=== PATIENT | male | born 1945 | race Hispanic/Latino ===

== ENCOUNTER 2018-09-01 17:09 | Inpatient (IN) | payer MEDICARE ==
[2018-09-01 17:34] LABS: #Eosinphils 0.3 thou/uL (0.0-0.7); #Lymphocytes 2.3 thou/uL (1.20-3.40); #Monocytes 0.9 thou/uL (0.11-0.59); #Neutrophils 6.3 thou/uL (1.40-6.50); %Basophils 0.3 % (0.0-1.0); %Lymphocytes 23.3 % (21.0-51.0); %Monocytes 8.9 % (0.0-10.0); %Neutrophils 64.5 % (42.0-75.0); Hemoglobin 16.1 g/dL (14.0-18.0); Mean Corpuscular HGB CONC 32.6 g/dL (32.0-36.0); Mean Corpuscular Hemoglobin 31.1 pg (27.0-31.0); Mean Corpuscular Volume 95.5 fL (78.0-98.0); Mean Platelet Volume 9.1 fL (7.4-10.4); Platelet Count 165 thou/uL (130-400); RBC Distribution Width 12.3 % (11.5-14.5); Red Blood Cell (RBC) Count 5.17 mill/uL (4.70-6.10); White Blood Cell (WBC) Count 9.7 thou/uL (4.8-10.8)
[2018-09-01] MEDS ORDERED: Amiodarone 150 MG/3 ML VIAL ONE (17:36)
[2018-09-01 17:53] LABS: ALT (SGPT) 61 U/L (8-55); AST (SGOT) 62 U/L (5-34); Albumin 4.1 g/dL (3.4-4.8); Alkaline Phosphatase 102 U/L (40-150); Anion Gap 12 mmol/L (10-20); BUN (Urea Nitrogen) 26 mg/dL (8.4-25.7); Bilirubin, Total 0.5 mg/dL (0.2-1.2); Calc. Creatinine Clearance 0 mL/min (70-130); Calcium 9.3 mg/dL (7.8-10.44); Carbon Dioxide 26 mmol/L (23-31); Chloride 104 mmol/L (98-107); Estimated GFR-MDRD 62; Globulin 3.7 g/dL (2.4-3.5); Glucose 103 mg/dL (83-110); Potassium 4.7 mmol/L (3.5-5.1); Protein, Total 7.8 g/dL (5.8-8.1); Sodium 137 mmol/L (136-145)
--- NOTE | 2018-09-01 17:59 | RAD ---
Frontal radiograph chest: 09/01/2018 COMPARISON: 11/14/2016 HISTORY: Tachycardia FINDINGS: Stable midline sternotomy wires and prominence of the cardiac silhouette. No pneumothorax o r lobar consolidation. Hazy increased density is noted in the left base which may be on the basis of soft tissue prominence, volume loss, small volume left pleural fluid, or mild left basilar airspac e disease. Pulmonary vascular congestion noted. IMPRESSION: Prominent cardiac silhouette with pulmonary vascular congestion and nonspecific mild incr eased density of the left lung base.
[2018-09-01 18:16] LABS: CKMB 5.1 ng/mL (0-6.6)
[2018-09-01 21:43] LABS: Troponin I 0.569 ng/mL (< 0.028)
[2018-09-01] MEDS ORDERED: Acetaminophen 325 MG TAB ONE (22:04)
[2018-09-02 00:36] LABS: Troponin I 1.077 ng/mL (< 0.028)
[2018-09-02] MEDS ORDERED: Acetaminophen 325 MG TAB PO PRN ×2 (01:59→20:37)
[2018-09-02 02:13] VITALS: BMI 27.9
[2018-09-02] MEDS ORDERED: Prevnar 13-Val Conj/PF 0.5 ML SYRINGE IM ONE (02:30)
[2018-09-02 05:32] LABS: Troponin I 1.493 ng/mL (< 0.028)
[2018-09-02] MEDS ORDERED: Clopidogrel Bisulfate 75 MG TAB PO SCH (06:00)
--- NOTE | 2018-09-02 12:54 | HP ---
CHIEF COMPLAINT: Heart racing. HISTORY OF PRESENT ILLNESS: This is a 73-year-old gentleman with a history of hypertension, coronary artery disease, status post coronary artery bypass graft, hypertension, and hyperlipidemia, who presented to the emergency department with onset of heart racing. The patient denies chest pain or shortness of breath, but does state that he felt like his heart was racing too fast. He did have some dyspnea on exertion but at rest would feel better. He presented to the emergency department, had a very high heart rate up into the 160s and 170s due to the rate. He was unable to determine between ventricular tachycardia and AFib with rapid ventricular response. In the emergency department, he underwent cardioversion with sedation. It did improve his heart rate down initially into the 80s, but then down into the 40s and 50s. He remains in AFib. At this point, as discussed with Cardiology as far as admission, he is feeling much better at this time. PAST MEDICAL HISTORY: Hypertension, hyperlipidemia, and coronary artery disease. PAST SURGICAL HISTORY: Five-vessel coronary artery bypass graft in 2017. SOCIAL HISTORY: He is retired. No smoking. No alcohol use. He lives with his . ALLERGIES: NO KNOWN DRUG ALLERGIES. MEDICATIONS: Include; 1. Lisinopril 2.5 mg daily. 2. Carvedilol 3.125 mg b.i.d. 3. Aspirin 325 mg daily. He is followed by Cardiology at [facility]. REVIEW OF SYSTEMS: As per the history of present illness. GENERAL: Denies any recent fevers, chills, or recent illness. HEENT: Denies headache, vision or hearing changes. CARDIAC: As per the history of present illness. PULMONARY: Denies cough or hemoptysis. GASTROINTESTINAL: Denies nausea, vomiting, or abdominal pain. GENITOURINARY: Denies dysuria or hematuria. Some history of BPH in the past. NEUROLOGIC: No weakness, seizure, or syncope. PHYSICAL EXAMINATION: VITAL SIGNS: Temperature 97.2, pulse 40 to 45, respirations 16, blood pressure 98/54, and pulse ox is 94% on room air. GENERAL: He is awake and alert. No acute distress. 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 HEENT: Mucosa is moist. NECK: Supple. HEART: Bradycardic and irregular. LUNGS: Clear. ABDOMEN: Soft. EXTREMITIES: With no edema. LABORATORY DATA: Reviewed. White blood cell count 9.7, hemoglobin and hematocrit of 16.1 and 49.1, and platelets of 165. Sodium 137, potassium 4.7, chloride 104 , CO2 of 26, BUN and creatinine 26 and 1.15, and serum glucose of 103. AST and ALT are elevated. Troponin I is rising, first one is 0.288, next 0.569, next 1.07, next 1.49. IMAGING DATA: EKGs reviewed. Echocardiogram is pending. ASSESSMENT AND PLAN: 1. This is a 73-year-old gentleman with known coronary artery disease, hypertension, hyperlipidemia, now with onset of atrial fibrillation with rapid ventricular response versus ventricular tachycardia, which is resolved with cardioversion. He is now bradycardic with atrial fibrillation. 2. Coronary artery disease with rising troponins likely due to demand ischemia and status post cardioversion but may be consistent with non-ST elevation myocardial infarction. Cardiology is consulted. For further evaluation, possible repeat cardiac catheterization. May need implanted defibrillator. 3. Hypotension. We will hold antihypertensive at this time. 4. Bradycardia, atrial fibrillation in junctional rhythm. May need pacemaker. Job ID: [id number] [facility]
--- NOTE | 2018-09-02 19:54 | CON ---
DATE OF CONSULTATION: 09/02/2018 REASON FOR CONSULTATION: Tachycardia. HISTORY OF PRESENT ILLNESS: Mr. Richardson is a very pleasant, very well known to myself, 73-year-old gentleman, mostly Kazakh speaking, who comes to the hospital for palpitations. He came in and was found to have a wide-complex rhythm that was attempted to be cardioverted several times, slowed down with different medications. He has a history of an ischemic cardiomyopathy. He had a bypass surgery in 2017. A few months later, he followed up in the office and repeat echocardiogram showed his EF has remained reduced at 30% to 35%. I offered him an AICD and he stated that he did not want it at that time and he wanted to think about it, that was the last time I ever saw him. He never came back for his followups. He missed a few and then never rescheduled. He comes in today with tachycardia. He has an underlying left bundle-branch block, so he was in what appears to be SVT or atrial tachycardia with a left bundle, which made it look like VT. He had his rate slowed down briefly and he went into 2:1 block, which could be either atrial tach versus aflutter with 2:1 block, likely atrial tach and then he went back up to the 150s. Eventually, he was placed on amiodarone and converted back to sinus rhythm and slowly started to have bradycardia and eventually had a 7 to 8 second pause, so amiodarone had to be stopped. Currently, he is in sinus rhythm. He denies any chest pain, tightness, pressure. During his admission, troponins were drawn, which were mildly elevated. PAST MEDICAL HISTORY: 1. Hypertension. 2. Hyperlipidemia. 3. Coronary artery disease, status post CABG x5 in 2017. 4. Ischemic cardiomyopathy with last EF in 2017 at 30% to 35%. SURGICAL HISTORY: CABG x5 in 2017. SOCIAL HISTORY: No alcohol, tobacco, or drugs. OUTPATIENT MEDICATIONS: Include; 1. Lisinopril 2.5 mg a day. 2. Carvedilol 3.125 mg b.i.d. 3. Aspirin 325 a day. ALLERGIES: NO KNOWN DRUG ALLERGIES. REVIEW OF SYSTEMS: A 12-point review of systems was done and was found to be negative unless stated in the history of present illness. PHYSICAL EXAMINATION: VITAL SIGNS: Temperature 97.4, pulse 47, respiratory rate 17, saturating 93% on 2 L nasal cannula, and blood pressure 176/82. GENERAL: Awake, alert, and oriented x3. No distress. HEENT: Normocephalic and atraumatic. NECK: Supple. LUNGS: Clear. CARDIOVASCULAR: S1 and S2. No S3 or S4. No murmurs. ABDOMEN: Soft. Positive bowel sounds. EXTREMITIES: Trace edema. SKIN: Warm and dry. LABORATORY DATA: Laboratory work was reviewed. CBC, unremarkable. Chemistry, unremarkable. Troponin is 0.2, then 0.5, then 1.0, then 1.4. AST and ALT are mildly elevated at 62 and 61. Albumin of 4.1. Creatinine 1.15. Echocardiogram was reviewed. He has an EF of 30% to 35% with grade 2 diastolic dysfunction, apical hypokinesis, and severely dilated left atrium. Right ventricular systolic pressure elevated at 45 mmHg. Aortic valve sclerosis. There is obkamroj-dh-vthtfl mitral regurgitation. ASSESSMENT: 1. Tachycardia-bradycardia syndrome. 2. Atrial tachycardia. 3. Underlying left bundle-branch block. 4. Ischemic cardiomyopathy with an ejection fraction of 30% to 35%. 5. Non-ST elevation myocardial infarction, demand ischemia most likely as he is asymptomatic and this is most likely from his atrial tach. PLAN: 1. Mr. Richardson is a candidate for pacemaker and in the setting of a chronic-reduced EF. He is a candidate for a defibrillator. Because of his left bundle-branch block, he would also be a candidate for a biventricular device. We will recommend he get a biventricular AICD at this time to protect from the tachy-nataliia syndrome and from his LV dysfunction and ischemic cardiomyopathy and try to synchronize his heart given his chronic left bundle-branch block. I spoke with Mr. Richardson about this at length and he stated that if this is what we need to do, he is willing to continue to proceed and get his biventricular AICD in place. 2. I think his troponin elevation is a demand ischemia from his arrhythmia. No plan on risk stratification at this time as he is asymptomatic, otherwise. 3. Dr. Bolanos is aware and he is planning on doing a biventricular AICD tomorrow. Thank you for letting us to participate in the care of your patient. We will continue to follow. Job ID: [id number]
[2018-09-02] MEDS ORDERED: Acetaminophen 325 MG TAB ONE (20:37)
[2018-09-03] MEDS ORDERED: CEFAZOLIN 2 GM in Premix Bag 1 BAG IVPB SCH (01:00)
[2018-09-03 02:59] LABS: Critical Call Chem Troponin I RESULT DECREASING; Troponin I 0.896 ng/mL (< 0.028)
--- NOTE | 2018-09-03 08:57 | PRG ---
DATE OF SERVICE: 09/03/2018 SUBJECTIVE: The patient is feeling fine now. He denies chest pain or shortness of breath. He did have some headache yesterday. No nausea or vomiting. He is quite anxious about this procedure today, but agrees with proceeding with it and understands risks and benefits of having the biventricular defibrillator pacemaker placed. He has not been ambulating much, but states his appetite is good. OBJECTIVE: VITAL SIGNS: Temperature 97.7, pulse 40 to 47, respirations 16 to 20, blood pressure 139/69, pulse ox 94% on room air. GENERAL: He is awake and alert, no acute distress. Speech is clear. NECK: Supple. HEART: Bradycardic. LUNGS: Clear. ABDOMEN: Soft. EXTREMITIES: With no edema. LABORATORY DATA: Last troponin was 0.896. ASSESSMENT AND PLAN: This is a 73-year-old gentleman with a history of coronary artery disease status post coronary artery bypass graft, admitted with atrial tachycardia and status post cardioversion in the emergency department and now with underlying bradycardia. 1. Tachy-nataliia syndrome. Appreciate Dr. Kirk and Dr. Bolanos. He is to proceed with a biventricular AICD placement today and is in agreement. 2. Ischemic cardiomyopathy with reduced ejection fraction. Further plan after AICD placement. 3. Ggd-ZE-[id number] myocardial infarction, likely secondary to demand ischemia with his severe tachycardia and status post cardioversion. 4. Hypertension. We will continue to monitor. Job ID: [id number]
--- NOTE | 2018-09-03 10:00 | CON ---
DATE OF CONSULTATION: 09/02/2018 HISTORY OF PRESENT ILLNESS: I am seeing Mr. 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 Chronic systolic congestive heart failure with ischemic cardiomyopathy. a. Moderate to severely reduced LVEF at 30% to 35%, moderate right atrial and severe left atrial enlargement, gztooirs-ie-lhsbkz mitral regurgitation, moderate tricuspid regurgitation, moderate pulmonary hypertension, has an echo on 09/01/2018. b. Prior reduced LVEF at 30% to 35% on echo in 2017. c. Multivessel disease from coronary artery bypass surgery in 2017. 2. Atrial tachycardia with one-to-one conduction at 160 beats per minute, responding to IV amiodarone. a. Tachy-nataliia syndrome with marked bradycardia after IV amiodarone loading with junctional rhythm and sinus exit blocks. 3. Left bundle branch block. 4. History of hypertension and hyperlipidemia. ALLERGIES: NONE NOTED. MEDICATIONS: At home include: 1. Lisinopril. 2. Carvedilol 3.125 mg twice a day. 3. Aspirin. SUBJECTIVE: Mr. Richardson presented with rapid heartbeats, palpitations. He was mildly dizzy, did not pass out. Denied chest pains. He was noted in the ER to be in a regular wide-complex tachycardia. Serial EKGs do reveal intermittently slower rhythms, but still continued atrial tachycardia with 1-1 versus 2-1 conduction. He received defibrillation, but that did not terminate the arrhythmia. Eventually, IV amiodarone was given, which slowed him down. He had excessive bradycardia in the 30s and 40s, junctional rhythm is also seen. He denies chest pains. No fever, chills, or cough. No stroke-like symptoms. No neurological deficits. He had elevated cardiac enzymes due to acute coronary syndrome, but due to demand ischemia with acute tachyarrhythmia. Currently denies PND, orthopnea, or lower extremity edema. No dizziness or loss of consciousness. No chest pains. He is NYHA class I to II functional status. REVIEW OF SYSTEMS: Rest of 12-point system otherwise unremarkable. PAST MEDICAL HISTORY: As above. SOCIAL HISTORY: The patient denies smoking EtOH or drug abuse. He lives with his . His son is present with him as a office electrician. OBJECTIVE DATA: VITAL SIGNS: Blood pressure is 162/84, heart rate 47, respirations 17, temperature 97.4 degrees Fahrenheit. GENERAL: Alert and oriented man, in no apparent distress. NECK: Supple. Jugular veins not distended. CHEST: Coarse without crackles. HEART: Sounds are regular to rate and rhythm. No murmur or gallop. ABDOMEN: Benign. Bowel sounds positive. EXTREMITIES: Lower extremity without edema, clubbing or cyanosis. Pulses are adequate. NEUROLOGIC: The patient is nonfocal. MUSCULOSKELETAL: No joint swelling or deformity. SKIN: Without rash. DATABASE: EKGs initially reveal a wide-complex tachycardia, left bundle branch block pattern QRS appr 150ms. Subsequent EKG reveals similar morphology. QRS with clear atrial tachycardia 2-1 AV conduction is noted. He has variable AV conduction also seen on other EKGs, seems there is EKG strips with multiple cardioversion attempts with recurrence of atrial tachycardia. Most recent telemetry strips do reveal marked bradycardia, junctional rhythm, occasional sinus exit block is seen. LABORATORY DATA: White count is 9.7, hemoglobin is 16.1, platelet count is 165. Sodium 137, potassium 4.7, BUN is 26, creatinine 1.15. Troponin I 0.288, initially increasing to 0.569, 1.077, and 1.493. AST 62, ALT 61. 2D echo as noted above. Chest x-ray shows apparent cardiac silhouette with pulmonary vascular congestion. ASSESSMENT AND PLAN: Mr. Richardson is a 73-year-old man with history of ischemic cardiomyopathy, severely reduced LVEF around the time of his bypass surgery. Now presents with atrial tachycardia with response to amiodarone, but now has excessive bradycardia, evidently has tachy-nataliia syndrome, hence chronic indication for ICD therapy. Although, he has elevated troponin levels, as I discussed with Dr. Kirk, it is likely due to demand ischemia, not a true acute coronary syndrome. For now, no new ischemic workup is planned. We discussed the pros and cons about consideration for ICD implant. With a Bi-V ICD, we were to improve his AV synchrony and in view of his left bundle branch block, this could be beneficial. Also, he would be able to monitor for ventricular arrhythmias, but also atrial arrhythmias and avoid excessive bradycardia with necessary medical therapy associated with that. Risk of ICD implantation, infection, bleeding, pneumothorax, and tamponade were discussed. He understands and is willing to proceed. We also discussed the potential for an ablation on the other hand with recent IV amiodarone, the suppression of the atrial arrhythmia may or may not be successfully induced. At this point, I would continue the medical management switching from amiodarone to beta-sonu and consider EP study at a later date after amiodarone washout. Also atrial tachyarrhythmia might be later well suppressed with atrial ATP therapies as well. Coronary artery disease with congest heart failure as per Dr. Kirk. All of these were discussed with the patient and they understand and willing to proceed. We will schedule him for tomorrow. Thank you again for allowing me to participate in the care of this patient. Job ID: [id number] MTDD
[2018-09-03] MEDS ORDERED: Iopamidol 370 76% 50 ML VIAL FS ONE (10:51)
[2018-09-03] MEDS ORDERED: Midazolam HCl 2 mg/2 ml Vial ONE (14:10)
[2018-09-03] MEDS ORDERED: Fentanyl 100 MCG/2 ML VIAL ONE (14:10)
[2018-09-03] MEDS ORDERED: Propofol 500 MG/50 ML VIAL ONE (14:11)
[2018-09-03] MEDS ORDERED: Ketamine 50 MG/ML (10ML VIAL) ONE (14:11)
[2018-09-03] MEDS ORDERED: PROPOFOL 200 MG/20 ML VIAL ONE (15:13)
[2018-09-03] MEDS ORDERED: ePHEDrine 50 MG/ML VIAL ONE (15:13)
[2018-09-03] MEDS ORDERED: Glycopyrrolate 0.2 MG/ML 5 ML SYRINGE ONE (15:13)
[2018-09-03] MEDS ORDERED: Promethazine HCl 25 MG/ML VIAL IM PRN (15:47)
[2018-09-03] MEDS ORDERED: Ondansetron HCl/PF 4 MG/2 ML Vial IVP PRN (15:47)
[2018-09-03] MEDS ORDERED: Promethazine HCl 25 MG/ML VIAL SLOW IVP PRN (15:47)
--- NOTE | 2018-09-03 18:06 | PDOC.CTH ---
Cardiology Progress Note - Subjective He had his AICD placed earlier today. He is doing better now. - Objective Vital Signs Temp Pulse Resp BP Pulse Ox 09/03/18 16:26 98.1 F 60 18 166/93 H 97 09/03/18 12:17 98.8 F 44 L 17 162/77 H 96 09/03/18 07:17 97.6 F 44 L 16 158/78 H 98 Weight 170 lb 12.8 oz 09/02/18 09/03/18 09/04/18 06:59 06:59 06:59 Intake Total 270 960 Output Total 100 700 Balance 170 260 - Physical Examination General/Neuro: alert & oriented x3, NAD Neck: no JVD present Lungs: CTA, unlabored respirations Heart: RRR Abdomen: NT/ND Extremities: other: (no edema) - Telemetry Telemetry Rhythm: AV paced. - Labs Result Diagrams: 09/01/18 17:18 09/01/18 17:18 Troponin/CKMB CK-MB (CK-2) 5.1 ng/mL (0-6.6) 09/01/18 17:18 Troponin I 0.896 ng/mL (< 0.028) H* 09/03/18 02:25 - Assessment/Plan 1. SVT 2. Tachy nataliia syndrome 3. Ischemic CM EF at 30-35% 4. S/P BiV AICD 5. LBBB underlying. PLAN: - Will re start BB and ACEI. Will increase dose of coreg. - ASA and statin for life. - Discharge home tomorrow if he remains stable. - Plan on switching to Entresto as an outpatient.
[2018-09-03] MEDS: HYDROcodone/Acetaminophen 7.5/325 mg Tablet PO PRN (18:25)
[2018-09-03] MEDS: Atorvastatin Calcium 20 MG TAB PO SCH (20:17)
[2018-09-03] MEDS: ceFAZolin Sodium 1 GM/Dextrose 50 ML BAG IVPB SCH (21:41)
[2018-09-04] MEDS: HYDROcodone/Acetaminophen 7.5/325 mg Tablet PO PRN ×4 (00:12→22:12)
[2018-09-04] MEDS: ceFAZolin Sodium 1 GM/Dextrose 50 ML BAG IVPB SCH (06:48)
[2018-09-04] MEDS ORDERED: Cephalexin 250 MG CAP PO SCH (08:00)
[2018-09-04] MEDS ORDERED: Carvedilol 6.25 MG TAB PO SCH ×2 (08:00)
--- NOTE | 2018-09-04 08:06 | RAD ---
CHEST 1 VIEW: HISTORY: Defibrillator placement. COMPARISON: 09/01/2018. FINDINGS: Cardiac silhouette is magnified and enlarged. Pulmonary vasculature is slightly less engorged than o n the prior study. Mild patchy bibasilar infiltrates are less pronounced. Mediastinum is midline wi th postoperative changes and aortic calcification. A multilead left subclavian cardiac electronic de vice is now in place with leads overlying the coronary sinus, right atrium, and right ventricle. No evidence of pneumothorax. cafeteria monitor leads overlie the chest. IMPRESSION: 1. Left subclavian cardiac electronic device is in good radiographic position. No evidence of compl ication. 2. Improved aeration of lung base. Interval decrease in radiographic degree of pulmonary vascular c ongestion. POS: [facility]
[2018-09-04] MEDS: Cephalexin 250 MG CAP PO SCH ×3 (08:53→20:48)
[2018-09-04] MEDS: Aspirin 81 mg Enteric Coated Tablet PO SCH (08:53)
[2018-09-04] MEDS ORDERED: Lisinopril 10 MG TAB PO SCH (09:00)
--- NOTE | 2018-09-04 10:14 | PDOC.CTH ---
Cardiology Progress Note - Subjective EP PROGRESS NOTE: 09/04/18 Seen as follow up after BiV ICD implant on 09/03/18 for CHF and LBBB. Feels well. No cardiac concerns or complaints today. Possible DC later today. Some pain and swelling at his implant site. - Objective Vital Signs Temp Pulse Resp BP BP Pulse Ox 09/04/18 08:07 97.8 F 63 20 175/84 H 96 09/04/18 04:00 97.8 F 63 20 167/85 H 95 09/04/18 00:05 98.5 F 63 20 149/80 H 93 L Weight 168 lb 12.8 oz 09/03/18 09/04/18 09/05/18 06:59 06:59 06:59 Intake Total 960 840 Output Total 700 2000 Balance 260 -1160 - Physical Examination General/Neuro: alert & oriented x3, NAD Neck: carotid US brisk, no JVD present Lungs: CTA, unlabored respirations Heart: PMI normal, RRR Abdomen: NT/ND, soft - Telemetry Telemetry Rhythm: SR - Labs Result Diagrams: 09/01/18 17:18 09/01/18 17:18 Troponin/CKMB CK-MB (CK-2) 5.1 ng/mL (0-6.6) 09/01/18 17:18 Troponin I 0.896 ng/mL (< 0.028) H* 09/03/18 02:25 - Assessment/Plan 1. A/C Systolic heart failure - per cardiology - was on carvedilol 12.5mg PO BID at home by home med rec. Was decreased during hospitalization d/t bradycardia before ICD. Now back on 12.5 BID. Further optimize to 25mg BID upon DC. 2. LBBB 3. BiV ICD - implanted 09/03 -continue post implant keflex x 7 days as prescribed. 4. Wide complex tachycardia - No VT inducible - Easily inducible for atrial tachycardia. Treat with BB for now. If symptomatic with recurrences can consider RFA as OP. OK for DC by EP. 10-14 day appt for wound/device check. 3 month fup will also be arranged.
[2018-09-04] MEDS: Carvedilol 25 MG TAB PO SCH (17:59)
--- NOTE | 2018-09-04 18:11 | PDOC.CTH ---
Cardiology Progress Note - Subjective he is doing well. He developed a small hematoma around his ICD site but it is better controlled. - Objective Vital Signs Temp Pulse Pulse Pulse Resp BP BP 09/04/18 13:17 98.3 F 66 18 09/04/18 10:56 66 81 147/80 H 162/89 H 09/04/18 08:10 09/04/18 08:07 97.8 F 63 20 BP BP Pulse Ox 09/04/18 13:17 131/78 96 09/04/18 10:56 09/04/18 08:10 95 09/04/18 08:07 175/84 H 96 Weight 168 lb 12.8 oz 09/03/18 09/04/18 09/05/18 06:59 06:59 06:59 Intake Total 960 840 Output Total 700 2000 Balance 260 -1160 - Physical Examination General/Neuro: alert & oriented x3, NAD Neck: no JVD present Lungs: CTA, unlabored respirations Heart: RRR Abdomen: NT/ND Extremities: + edema B (no edema) - Telemetry Telemetry Rhythm: AV paced. - Labs Result Diagrams: 09/01/18 17:18 09/01/18 17:18 Troponin/CKMB CK-MB (CK-2) 5.1 ng/mL (0-6.6) 09/01/18 17:18 Troponin I 0.896 ng/mL (< 0.028) H* 09/03/18 02:25 - Assessment/Plan 1. SVT 2. Tachy nataliia syndrome 3. Ischemic CM EF at 30-35% 4. S/P BiV AICD 5. LBBB underlying. PLAN: - Increase BBV and ACEI today. - ASA and statin for life. - Discharge home anytime from cardiac perspective. - Will sign off, please call with any questions.
[2018-09-04] MEDS: Atorvastatin Calcium 20 MG TAB PO SCH (20:48)
--- NOTE | 2018-09-05 01:05 | DIS ---
DATE OF ADMISSION: 09/01/2018 DATE OF DISCHARGE: 09/04/2018 ADMISSION DIAGNOSES: 1. Tachyarrhythmia suspicious for ventricular tachycardia. 2. Coronary artery disease. 3. Cardiomyopathy with decreased left ventricular ejection fraction. 4. Hypertension. 5. Hyperlipidemia. DISCHARGE DIAGNOSES: 1. Tachy-nataliia syndrome. 2. Atrial fibrillation. 3. Symptomatic bradycardia. CONSULTATIONS: Dr. iKrk for Cardiology. Dr. Bolanos for Electrophysiology. PROCEDURES: 1. Telemetry monitoring, rule out [place] protocol. 2. Cardioversion in the emergency department. 3. Echocardiogram. 4. Cardiac catheterization. 5. AICD placement with postoperative chest wall hematoma. HOSPITAL COURSE: This is a 73-year-old gentleman with a history of coronary artery disease status post coronary artery bypass graft, hypertension, hyperlipidemia, and noncompliance who presented to the emergency department with feeling like his heart was going too fast. In the emergency department, he had a heart rate up to 160s and 170s. There was suspicion for ventricular tachycardia due to his symptoms. He underwent cardioversion and converted to atrial fibrillation with symptomatic bradycardia with heart rates down to the 40s. Due to his symptoms, Dr. Bolanos was consulted and agreed with placement for a defibrillator and pacemaker. He did rule in for myocardial infarction with positive troponins, likely due to demand ischemia with this tachycardia as well as cardioversion. His antihypertensives were held due to his low blood pressure. The patient had no further symptoms. He tolerated the AICD placement and was feeling much better. On the day of discharge, he did develop hematoma in his chest wall site, likely due to trying to sleep on his left side last night. Pressure was to be applied and if okay with Dr. Bolanos, he will be discharged home with close followup. DISCHARGE PHYSICAL EXAMINATION: VITAL SIGNS: Temperature 97.8, pulse is 63, respirations 20, blood pressure 167/85, pulse ox 95% on room air. GENERAL: He is awake and alert, in no acute distress. He seems more energetic. Denies chest pain or shortness of breath. Mucosa is moist. CHEST WALL: Incision is clean, dry, and intact. He does have swelling on the left anterior chest wall with some tenderness. HEART: Regular rate and rhythm. LUNGS: Clear. No wheeze, rales, or rhonchi. ABDOMEN: Soft. LABORATORY DATA: Reviewed. Chest x-ray this morning is pending radiology reading, but appears clear. No pneumothorax. Sternal wires present as well as device in the left anterior chest wall. DISCHARGE MEDICATIONS: Include: 1. Tylenol p.r.n. 2. Aspirin 81 mg daily. 3. Lipitor 20 mg daily. 4. Carvedilol increased to 12.5 mg b.i.d. 5. Keflex 500 mg q.i.d. for 7 more days. 6. Lisinopril 10 mg daily. FOLLOWUP INSTRUCTIONS: The patient to follow up in my office in 1 week. Follow up with Dr. Kirk for Cardiology and Dr. Bolanos for Electrophysiology. Job ID: [id number]
[2018-09-05] MEDS: Cephalexin 250 MG CAP PO SCH ×2 (03:09→08:25)
[2018-09-05] MEDS: Carvedilol 25 MG TAB PO SCH (08:25)
[2018-09-05] MEDS: Aspirin 81 mg Enteric Coated Tablet PO SCH (08:26)
[2018-09-05] MEDS ORDERED: Lisinopril 20 MG TAB PO SCH ×2 (09:00→12:04)
[2018-09-05] MEDS: HYDROcodone/Acetaminophen 7.5/325 mg Tablet PO PRN (09:37)
[2018-09-05] MEDS ORDERED: Lisinopril 10 MG TAB PO SCH (12:30)
[2018-09-05 16:10] VITALS: BP 112/71; TEMP 98.2
[2018-09-06] MEDS ORDERED: Lisinopril 10 MG TAB PO SCH (09:00)
== END 2018-09-05 14:35 | disposition home or self-care (01) | DRG 226 ==
LOC: ERS 17:09 → ERHOLD 21:11 → 2NO 09-02 00:57
PROVIDERS: ADMIT Family Medicine; ATTEND Family Medicine
PROC: 0JH609Z Insertion of Cardiac Resynchronization Defibrillator Pulse Generator into Chest Subcutaneous Tissue and Fascia, Open Approach (ICD-10-PCS; principal; 2018-09-03)
PROC: 02HK3KZ Insertion of Defibrillator Lead into Right Ventricle, Percutaneous Approach (ICD-10-PCS; 2018-09-03)
PROC: 02HL3KZ Insertion of Defibrillator Lead into Left Ventricle, Percutaneous Approach (ICD-10-PCS; 2018-09-03)
PROC: 02H74KZ Insertion of Defibrillator Lead into Left Atrium, Percutaneous Endoscopic Approach (ICD-10-PCS; 2018-09-03)
PROC: 5A2204Z Restoration of Cardiac Rhythm, Single (ICD-10-PCS; 2018-09-03)
DX: I49.5 Sick sinus syndrome (principal); I21.A1 Myocardial infarction type 2; I50.23 Acute on chronic systolic (congestive) heart failure; I47.1 Supraventricular tachycardia; L76.32 Postprocedural hematoma of skin and subcutaneous tissue following other procedure; Y83.8 Other surgical procedures as the cause of abnormal reaction of the patient, or of later complication, without mention of misadventure at the time of the procedure; I25.10 Atherosclerotic heart disease of native coronary artery without angina pectoris; I25.5 Ischemic cardiomyopathy; I44.7 Left bundle-branch block, unspecified; I11.0 Hypertensive heart disease with heart failure; I48.91 Unspecified atrial fibrillation; I08.3 Combined rheumatic disorders of mitral, aortic and tricuspid valves; I27.20 Pulmonary hypertension, unspecified; Z79.82 Long term (current) use of aspirin; Z95.1 Presence of aortocoronary bypass graft; Z79.899 Other long term (current) drug therapy
CPT/HCPCS: 33225; 33249; 36005; 36415; 71045; 75820; 80053; 82553; 84484; 85025; 90471; 90670; 93005; 93306; 93798; 94760; C1777; C1882; C1898; C1900; G0009; J0282; J0690; J2250; J2704; J3010; J3490; Q9967

== ENCOUNTER 2019-10-23 19:49 | Emergency (ER) | payer MEDICARE ==
[2019-10-23] MEDS ORDERED: Fluorescein Opthalmic Strip ONE (20:05)
[2019-10-23] MEDS ORDERED: cefTRIAXone\\ROCEPHIN 250 MG VIAL ONE (20:39)
[2019-10-23] MEDS ORDERED: Azithromycin 250 MG TAB ONE (20:39)
[2019-10-23] MEDS ORDERED: Lidocaine 1% (PF) 30 ML VIAL ONE (20:40)
[2019-10-23] MEDS ORDERED: Lidocaine 1% PF 5 ML VIAL ONE (20:42)
== END 2019-10-23 21:15 | disposition home or self-care (01) ==
LOC: ERS 19:49
DX: H10.023 Other mucopurulent conjunctivitis, bilateral (principal); I10 Essential (primary) hypertension; Z79.82 Long term (current) use of aspirin; Z79.899 Other long term (current) drug therapy; Z79.891 Long term (current) use of opiate analgesic
CPT/HCPCS: 96372; 99283; J0696; J2001

== ENCOUNTER 2020-04-13 06:31 | Outpatient (CLI) | payer MEDICARE ==
[2020-04-13 15:19] LABS: Hemoglobin 16.4 g/dL (14.0-18.0); Mean Corpuscular HGB CONC 33.1 G/DL (32.0-36.0); Mean Corpuscular Hemoglobin 30.7 PG (27.0-33.0); Mean Corpuscular Volume 92.5 fl (80.0-100.0); Platelet Count 166 10x3/uL (130-400); RBC Distribution Width 13.4 % (11.5-14.5); Red Blood Cell (RBC) Count 5.35 10x6/uL (4.40-5.80); White Blood Cell (WBC) Count 7.7 10x3/uL (4.5-11.0)
[2020-04-13 15:38] LABS: Anion Gap 14 mmol/L (10-20); BUN (Urea Nitrogen) 28 mg/dL (8.4-25.7); Calc. Creatinine Clearance 0 mL/min (70-130); Calcium 9.2 mg/dL (7.8-10.44); Carbon Dioxide 28 mmol/L (23-31); Chloride 100 mmol/L (98-107); Estimated GFR-MDRD 53; Glucose 90 mg/dL (83-110); Potassium 5.1 mmol/L (3.5-5.1); Sodium 137 mmol/L (136-145)
[2020-04-13 15:42] LABS: INR-International Normal Ratio 1.1; PTT 28.8 sec (22.0-33.0); Prothrombin Time 11.5 sec (9.5-12.1)
[2020-04-14 03:09] LABS: SARS-CoV-2 MS2 Positive; SARS-CoV-2 N Gene Negative; SARS-CoV-2 S Gene Negative; SARS-CoV-2 by NAA Not Detected (NotDetected); SARS-CoV-2 orf1ab Negative
--- NOTE | 2020-04-15 07:07 | EKG ---
Test Reason : Blood Pressure : / mmHG Vent. Rate : 077 BPM Atrial Rate : 234 BPM P-R Int : 000 ms QRS Dur : 128 ms QT Int : 428 ms P-R-T Axes : 000 -81 080 degrees QTc Int : 484 ms Ventricular-paced rhythm Biventricular pacemaker detected Abnormal ECG Confirmed by DR. Patricia FRASER ([id number]) on 04/15/2020 7:07:05 AM Referred By: [facility] Confirmed By:DR. Patricia FRASER
== END 2020-04-13 06:32 | disposition home or self-care (01) ==
LOC: LABBT 06:31
PROVIDERS: ATTEND Internal Medicine Cardiovascular Disease
DX: Z01.818 Encounter for other preprocedural examination (principal); Z20.828 Contact with and (suspected) exposure to other viral communicable diseases; I48.91 Unspecified atrial fibrillation
CPT/HCPCS: 80048; 85027; 85610; 85730; 93005; U0003; 87635; 93010

== ENCOUNTER 2020-04-18 06:09 | Day surgery (SDC) | payer MEDICARE ==
[2020-04-14 11:09] VITALS: BMI 29.0
[2020-04-18] MEDS ORDERED: Hydrocortisone 1% Cream 30 GM TUBE ONE (08:14)
--- NOTE | 2020-04-18 08:48 | OP ---
DATE OF PROCEDURE: 04/18/2020 PROCEDURES PERFORMED: External cardioversion as well as noninvasive program stimulation study. ADDITIONAL REFERRING PHYSICIAN: Stuart Abraham DO REASON FOR PROCEDURE: Mr. Richardson is a 75-year-old male with prior history of CHF, hypertension, diabetes, and paroxysmal more recently persistent atrial fibrillation, who has a [employer] Bi-V ICD in placed. He had persistent atrial fibrillation and he is now adequately anticoagulated with Eliquis. He is here for a planned cardioversion and also noninvasive program stimulation. DESCRIPTION OF PROCEDURE: The patient received propofol by Anesthesia specialist. After adequate level of sedation achieved, an external 150 joule shock was delivered, which converted the patient into an atrial tachycardia. ICD was interrogated. At this point, indeed an atrial tachycardia with cycle length about 470 milliseconds was seen. Multiple atrial overdrive maneuvers were delivered down to 250 milliseconds, which transiently converted the patient to sinus rhythm. Eventually, we were able to achieve sinus rhythm after marked with the attempts. The ICD was reprogrammed to attempt atrial tachycardia and termination down to 360 milliseconds the lowest available rate. Also preference pacing was turned on. Mode switched to this latest rate was also turned on. CONCLUSION: 1. Successful termination of atrial fibrillation into an atrial tachycardia with external cardioversion. 2. Noninvasive program stimulation Bi-V ICD terminated atrial tachycardia into sinus rhythm. 3. Successful cardioversion. PLAN: He had low-dose sotalol and monitor for recurrence. Job ID: [id number]
[2020-04-18] MEDS ORDERED: Lidocaine 1% PF 5 ML VIAL ONE (10:23)
[2020-04-18] MEDS ORDERED: PROPOFOL 200 MG/20 ML VIAL ONE (10:23)
--- NOTE | 2020-04-26 20:34 | EKG ---
Test Reason : POST CARDIOVERSION Blood Pressure : / mmHG Vent. Rate : 078 BPM Atrial Rate : 078 BPM P-R Int : 146 ms QRS Dur : 134 ms QT Int : 452 ms P-R-T Axes : -09 012 109 degrees QTc Int : 515 ms AV sequential or dual chamber electronic pacemaker When compared with ECG of 13-APR-2020 13:46, No significant change was found Confirmed by DR. Enrique NEVES ([id number]) on 04/26/2020 8:33:54 PM Referred By: JESSICA Confirmed By:DR. Enriuqe NEVES
== END 2020-04-18 08:28 | disposition home or self-care (01) ==
LOC: CCL 06:09
PROVIDERS: ATTEND Internal Medicine Cardiovascular Disease
PROC: 5A2204Z Restoration of Cardiac Rhythm, Single (ICD-10-PCS; principal; 2020-04-18)
DX: I48.19 Other persistent atrial fibrillation (principal); I11.0 Hypertensive heart disease with heart failure; I50.9 Heart failure, unspecified; E11.9 Type 2 diabetes mellitus without complications; Z79.01 Long term (current) use of anticoagulants; Z79.82 Long term (current) use of aspirin; Z79.899 Other long term (current) drug therapy; Z95.1 Presence of aortocoronary bypass graft
CPT/HCPCS: 92960; 93005; 93010; J2704

== ENCOUNTER 2021-09-05 23:39 | Inpatient (IN) | payer MEDICARE ==
[~2021-09-05 23:39] MED LIST: Iopamidol 370 76% 100 ML VIAL ONE
[2021-09-06 00:10] LABS: #Eosinphils 0.6 thou/uL (0.0-0.7); #Monocytes 0.9 thou/uL (0.11-0.59); %Basophils 0.4 % (0.0-1.0); %Eosinophils 8.2 % (0.0-10.0); %Lymphocytes 26.7 % (21.0-51.0); %Monocytes 11.7 % (0.0-10.0); Hemoglobin 16.2 g/dL (14.0-18.0); Mean Corpuscular HGB CONC 33.4 g/dL (32.0-36.0); Mean Corpuscular Hemoglobin 33.1 pg (27.0-31.0); Mean Platelet Volume 7.7 fL (7.4-10.4); Platelet Count 164 thou/uL (130-400); RBC Distribution Width 12.5 % (11.5-14.5); Red Blood Cell (RBC) Count 4.91 mill/uL (4.70-6.10); White Blood Cell (WBC) Count 7.6 thou/uL (4.8-10.8)
[2021-09-06 00:23] LABS: ALT (SGPT) 15 U/L (8-55); AST (SGOT) 25 U/L (5-34); Albumin 3.3 g/dL (3.4-4.8); Alkaline Phosphatase 73 U/L (40-110); Anion Gap 12 mmol/L (10-20); BUN (Urea Nitrogen) 20 mg/dL (8.4-25.7); Bilirubin, Total 0.5 mg/dL (0.2-1.2); Calc. Creatinine Clearance 0 mL/min (70-130); Calcium 8.6 mg/dL (7.8-10.44); Carbon Dioxide 22 mmol/L (23-31); Chloride 104 mmol/L (98-107); Globulin 3.3 g/dL (2.4-3.5); Glucose 121 mg/dL (83-110); Potassium 4.5 mmol/L (3.5-5.1); Protein, Total 6.6 g/dL (5.8-8.1); Sodium 133 mmol/L (136-145)
[2021-09-06 00:25] LABS: INR-International Normal Ratio 1.2; Prothrombin Time 15.7 sec (12.0-14.7)
[2021-09-06 00:26] LABS: PTT 31.3 sec (22.9-36.1)
[2021-09-06 00:48] LABS: CKMB 2.6 ng/mL (0-6.6)
[2021-09-06] MEDS ORDERED: Aspirin 300 MG Suppository ONE (01:23)
[2021-09-06 02:39] LABS: Bacteria/HPF None Seen HPF (None Seen); Bilirubin Negative (Negative); Blood, Urine 3+ (Negative); Clarity Clear (Clear); Glucose, Urine (Dipstick) Normal (Negative); Ketone, Urine Negative (Negative); Leukocyte Negative Leu/uL (Negative); Nitrite Negative (Negative); Protein, Urine (Dipstick) 300 mg/dL (Neg-Trace); RBC/HPF Greater than 50 HPF (0-3); Squamous Epithelial 0-3 HPF (0-3); Urobilinogen Normal mg/dL (Less than 2); WBC/HPF 0-3 HPF (0-3); pH, Urine 6.5 (5.0-9.0)
[2021-09-06 02:41] LABS: Specific Gravity, Urine 1.051 (1.002-1.036)
[2021-09-06] MEDS ORDERED: Acetaminophen 650 MG Suppository PR PRN (10:33)
[2021-09-06] MEDS ORDERED: Ondansetron PF 4 MG/2 ML Vial IVP PRN (10:33)
[2021-09-06] MEDS ORDERED: Ondansetron ODT 4 MG TAB PO PRN (10:33)
[2021-09-06] MEDS ORDERED: hydrALAZINE 20 MG/ML VIAL SLOW IVP PRN (10:34)
[2021-09-06] MEDS ORDERED: Sodium Chloride 0.9% 1,000 ML IV SCH (10:45)
[2021-09-06 11:57] LABS: Critical Call Chem Troponin I RESULT DECREASING
[2021-09-06 12:20] LABS: CKMB 10.1 ng/mL (0-6.6)
[2021-09-06 12:22] LABS: SARS-CoV-2 PCR by NAA Not Detected (NotDetected)
[2021-09-06 17:08] LABS: Critical Call Chem Troponin I RESULT DECREASING
[2021-09-06 17:35] LABS: CKMB 14.4 ng/mL (0-6.6)
[2021-09-06] MEDS ORDERED: Apixaban 5 MG TAB PO SCH (21:00)
[2021-09-06] MEDS: Atorvastatin Calcium 40 MG TAB PO SCH (21:55)
[2021-09-07 05:28] LABS: #Lymphocytes 1.4 thou/uL (1.20-3.40); #Monocytes 0.9 thou/uL (0.11-0.59); #Neutrophils 9.4 thou/uL (1.40-6.50); %Basophils 0.2 % (0.0-1.0); %Eosinophils 0.3 % (0.0-10.0); %Monocytes 7.7 % (0.0-10.0); %Neutrophils 79.8 % (42.0-75.0); Hemoglobin 16.9 g/dL (14.0-18.0); Mean Corpuscular HGB CONC 33.5 g/dL (32.0-36.0); Mean Corpuscular Hemoglobin 32.9 pg (27.0-31.0); Mean Corpuscular Volume 98.4 fL (78.0-98.0); Mean Platelet Volume 7.6 fL (7.4-10.4); Platelet Count 192 thou/uL (130-400); RBC Distribution Width 12.5 % (11.5-14.5); Red Blood Cell (RBC) Count 5.14 mill/uL (4.70-6.10); White Blood Cell (WBC) Count 11.8 thou/uL (4.8-10.8)
[2021-09-07 05:42] LABS: Hemoglobin A1c 5.8 % (4.0-6.0)
[2021-09-07 05:46] LABS: Anion Gap 16 mmol/L (10-20); BUN (Urea Nitrogen) 18 mg/dL (8.4-25.7); Calc. Creatinine Clearance 81 mL/min (70-130); Calcium 8.9 mg/dL (7.8-10.44); Carbon Dioxide 21 mmol/L (23-31); Cardiac Risk 5.9 (Less than 4.5); Chloride 105 mmol/L (98-107); Cholesterol 182 mg/dl (< 200 Desired); Glucose 125 mg/dL (83-110); HDL Cholesterol 31 mg/dL (>60 Neg Risk); LDL Cholesterol, Calculated 132 mg/dL; Magnesium 1.7 mg/dL (1.6-2.6); Sodium 138 mmol/L (136-145); Triglycerides 97 mg/dL (Less than 150)
[2021-09-07] MEDS: Aspirin 300 MG Suppository PR SCH (08:31)
[2021-09-07] MEDS: Sodium Chloride 0.9% 1,000 ML IV SCH (15:43)
[2021-09-07] MEDS: Atorvastatin Calcium 40 MG TAB PO SCH (22:31)
[2021-09-08] MEDS: Sodium Chloride 0.9% 1,000 ML IV SCH (03:37)
[2021-09-08 05:04] LABS: #Lymphocytes 1.2 thou/uL (1.20-3.40); #Neutrophils 9.6 thou/uL (1.40-6.50); %Basophils 0.1 % (0.0-1.0); %Eosinophils 0.2 % (0.0-10.0); %Lymphocytes 10.3 % (21.0-51.0); %Monocytes 8.6 % (0.0-10.0); %Neutrophils 80.8 % (42.0-75.0); Hemoglobin 16.7 g/dL (14.0-18.0); Mean Corpuscular HGB CONC 32.7 g/dL (32.0-36.0); Mean Corpuscular Hemoglobin 32.1 pg (27.0-31.0); Mean Corpuscular Volume 98.3 fL (78.0-98.0); Mean Platelet Volume 7.6 fL (7.4-10.4); Platelet Count 188 thou/uL (130-400); RBC Distribution Width 12.5 % (11.5-14.5); Red Blood Cell (RBC) Count 5.21 mill/uL (4.70-6.10); White Blood Cell (WBC) Count 11.9 thou/uL (4.8-10.8)
[2021-09-08 05:23] LABS: Anion Gap 13 mmol/L (10-20); BUN (Urea Nitrogen) 19 mg/dL (8.4-25.7); Calc. Creatinine Clearance 85 mL/min (70-130); Calcium 8.8 mg/dL (7.8-10.44); Carbon Dioxide 22 mmol/L (23-31); Chloride 105 mmol/L (98-107); Glucose 136 mg/dL (83-110); Potassium 3.7 mmol/L (3.5-5.1); Sodium 136 mmol/L (136-145)
[2021-09-08] MEDS: Aspirin 300 MG Suppository PR SCH (08:11)
[2021-09-08] MEDS ORDERED: hydrALAZINE 20 MG/ML VIAL SLOW IVP PRN (14:29)
[2021-09-08] MEDS ORDERED: Mannitol 12.5 GM/50 ML SLOW IVP SCH (19:00)
[2021-09-08] MEDS: Carvedilol 25 MG TAB PER TUBE SCH (19:30)
[2021-09-08 19:37] LABS: Sodium 138 mmol/L (136-145)
[2021-09-08] MEDS: Mannitol 12.5 GM/50 ML SLOW IVP SCH (20:35)
[2021-09-08] MEDS: Atorvastatin Calcium 40 MG TAB PO SCH (21:11)
[2021-09-09 01:39] LABS: Sodium 139 mmol/L (136-145)
[2021-09-09] MEDS: Mannitol 12.5 GM/50 ML SLOW IVP SCH ×4 (02:07→20:12)
[2021-09-09 03:34] LABS: #Lymphocytes 1.1 thou/uL (1.20-3.40); #Monocytes 1.1 thou/uL (0.11-0.59); #Neutrophils 11.3 thou/uL (1.40-6.50); %Eosinophils 0.1 % (0.0-10.0); %Lymphocytes 7.8 % (21.0-51.0); %Monocytes 8.2 % (0.0-10.0); %Neutrophils 83.8 % (42.0-75.0); Hemoglobin 16.4 g/dL (14.0-18.0); Mean Corpuscular HGB CONC 32.7 g/dL (32.0-36.0); Mean Corpuscular Hemoglobin 32.5 pg (27.0-31.0); Mean Corpuscular Volume 99.5 fL (78.0-98.0); Mean Platelet Volume 7.7 fL (7.4-10.4); Platelet Count 171 thou/uL (130-400); RBC Distribution Width 12.5 % (11.5-14.5); Red Blood Cell (RBC) Count 5.05 mill/uL (4.70-6.10); White Blood Cell (WBC) Count 13.4 thou/uL (4.8-10.8)
[2021-09-09 03:55] LABS: Anion Gap 12 mmol/L (10-20); BUN (Urea Nitrogen) 24 mg/dL (8.4-25.7); Calc. Creatinine Clearance 91 mL/min (70-130); Calcium 8.8 mg/dL (7.8-10.44); Carbon Dioxide 24 mmol/L (23-31); Chloride 106 mmol/L (98-107); Glucose 172 mg/dL (83-110); Potassium 3.7 mmol/L (3.5-5.1); Sodium 138 mmol/L (136-145)
[2021-09-09 07:53] LABS: Sodium 134 mmol/L (136-145)
[2021-09-09] MEDS: Aspirin 300 MG Suppository PR SCH (08:18)
[2021-09-09] MEDS: Carvedilol 25 MG TAB PER TUBE SCH ×2 (08:18→17:21)
[2021-09-09 14:28] LABS: Anion Gap 12 mmol/L (10-20); BUN (Urea Nitrogen) 28 mg/dL (8.4-25.7); Calc. Creatinine Clearance 89 mL/min (70-130); Carbon Dioxide 27 mmol/L (23-31); Chloride 106 mmol/L (98-107); Glucose 165 mg/dL (83-110); Potassium 3.9 mmol/L (3.5-5.1); Sodium 141 mmol/L (136-145)
[2021-09-09 18:38] LABS: Anion Gap 13 mmol/L (10-20); BUN (Urea Nitrogen) 28 mg/dL (8.4-25.7); Calc. Creatinine Clearance 94 mL/min (70-130); Calcium 8.9 mg/dL (7.8-10.44); Carbon Dioxide 24 mmol/L (23-31); Chloride 107 mmol/L (98-107); Glucose 162 mg/dL (83-110); Potassium 3.9 mmol/L (3.5-5.1); Sodium 140 mmol/L (136-145)
[2021-09-09] MEDS: Atorvastatin Calcium 40 MG TAB PO SCH (20:39)
[2021-09-10 01:10] LABS: Anion Gap 14 mmol/L (10-20); BUN (Urea Nitrogen) 28 mg/dL (8.4-25.7); Calc. Creatinine Clearance 96 mL/min (70-130); Calcium 9.2 mg/dL (7.8-10.44); Carbon Dioxide 27 mmol/L (23-31); Chloride 107 mmol/L (98-107); Glucose 153 mg/dL (83-110); Potassium 3.8 mmol/L (3.5-5.1); Sodium 144 mmol/L (136-145)
[2021-09-10] MEDS: Mannitol 12.5 GM/50 ML SLOW IVP SCH (02:06)
[2021-09-10 03:22] LABS: #Basophils 0.1 thou/uL (0.0-0.2); #Eosinphils 0.1 thou/uL (0.0-0.7); #Lymphocytes 1.1 thou/uL (1.20-3.40); #Monocytes 1.2 thou/uL (0.11-0.59); #Neutrophils 10.1 thou/uL (1.40-6.50); %Basophils 0.4 % (0.0-1.0); %Eosinophils 0.5 % (0.0-10.0); %Monocytes 9.4 % (0.0-10.0); %Neutrophils 80.7 % (42.0-75.0); Mean Corpuscular HGB CONC 32.5 g/dL (32.0-36.0); Mean Corpuscular Hemoglobin 32.4 pg (27.0-31.0); Mean Corpuscular Volume 99.8 fL (78.0-98.0); Mean Platelet Volume 8.3 fL (7.4-10.4); Platelet Count 174 thou/uL (130-400); RBC Distribution Width 12.6 % (11.5-14.5); Red Blood Cell (RBC) Count 5.23 mill/uL (4.70-6.10); White Blood Cell (WBC) Count 12.5 thou/uL (4.8-10.8)
[2021-09-10 03:42] LABS: Anion Gap 13 mmol/L (10-20); BUN (Urea Nitrogen) 27 mg/dL (8.4-25.7); Calc. Creatinine Clearance 93 mL/min (70-130); Calcium 8.8 mg/dL (7.8-10.44); Carbon Dioxide 26 mmol/L (23-31); Chloride 104 mmol/L (98-107); Glucose 152 mg/dL (83-110); Potassium 3.8 mmol/L (3.5-5.1); Sodium 139 mmol/L (136-145)
[2021-09-10] MEDS: Carvedilol 25 MG TAB PER TUBE SCH ×2 (07:11→17:01)
[2021-09-10] MEDS: Aspirin 300 MG Suppository PR SCH (07:11)
[2021-09-10 08:18] LABS: Anion Gap 13 mmol/L (10-20); BUN (Urea Nitrogen) 27 mg/dL (8.4-25.7); Calc. Creatinine Clearance 95 mL/min (70-130); Calcium 9.1 mg/dL (7.8-10.44); Carbon Dioxide 27 mmol/L (23-31); Chloride 107 mmol/L (98-107); Glucose 149 mg/dL (83-110); Potassium 3.7 mmol/L (3.5-5.1); Sodium 143 mmol/L (136-145)
[2021-09-10] MEDS: Atorvastatin Calcium 40 MG TAB PO SCH (21:38)
[2021-09-11 03:59] LABS: #Eosinphils 0.2 thou/uL (0.0-0.7); #Lymphocytes 1.1 thou/uL (1.20-3.40); #Monocytes 1.2 thou/uL (0.11-0.59); #Neutrophils 10.4 thou/uL (1.40-6.50); %Basophils 0.1 % (0.0-1.0); %Eosinophils 1.6 % (0.0-10.0); %Lymphocytes 8.5 % (21.0-51.0); %Monocytes 9.4 % (0.0-10.0); %Neutrophils 80.3 % (42.0-75.0); Hemoglobin 17.4 g/dL (14.0-18.0); Mean Corpuscular Hemoglobin 32.3 pg (27.0-31.0); Mean Platelet Volume 7.9 fL (7.4-10.4); Platelet Count 194 thou/uL (130-400); RBC Distribution Width 12.5 % (11.5-14.5); Red Blood Cell (RBC) Count 5.38 mill/uL (4.70-6.10)
[2021-09-11 04:11] LABS: Anion Gap 13 mmol/L (10-20); BUN (Urea Nitrogen) 29 mg/dL (8.4-25.7); Calc. Creatinine Clearance 86 mL/min (70-130); Carbon Dioxide 28 mmol/L (23-31); Chloride 105 mmol/L (98-107); Glucose 148 mg/dL (83-110); Potassium 3.8 mmol/L (3.5-5.1); Sodium 142 mmol/L (136-145)
[2021-09-11] MEDS: Aspirin 325 MG TAB PER TUBE SCH (10:42)
[2021-09-11] MEDS: Carvedilol 25 MG TAB PER TUBE SCH ×3 (11:31→18:36)
[2021-09-11] MEDS ORDERED: Dextrose 50% Abboject 50 ML SYRINGE SLOW IVP PRN (17:14)
[2021-09-11] MEDS ORDERED: Dextrose 5% in Water 1,000 ML IV PRN (17:14)
[2021-09-11] MEDS: HumaLOG 300 UNITS/3 ML VIAL SC PRN ×2 (17:52→21:08)
[2021-09-11] MEDS: Atorvastatin Calcium 40 MG TAB PO SCH (20:31)
[2021-09-12] MEDS: HumaLOG 300 UNITS/3 ML VIAL SC PRN ×2 (04:54→16:42)
[2021-09-12] MEDS: Carvedilol 25 MG TAB PER TUBE SCH ×2 (07:57→17:14)
[2021-09-12] MEDS: Acetaminophen 325 MG TAB PO PRN ×2 (07:57→11:23)
[2021-09-12] MEDS: Aspirin 325 MG TAB PER TUBE SCH (07:58)
[2021-09-12] MEDS: Atorvastatin Calcium 40 MG TAB PO SCH (20:04)
[2021-09-13] MEDS: Aspirin 325 MG TAB PER TUBE SCH (09:11)
[2021-09-13] MEDS: Carvedilol 25 MG TAB PER TUBE SCH ×2 (09:12→16:11)
[2021-09-13 11:58] LABS: SARS-CoV-2 PCR by NAA Not Detected (NotDetected)
[2021-09-13] MEDS: HumaLOG 300 UNITS/3 ML VIAL SC PRN ×2 (12:17→15:28)
[2021-09-13] MEDS: Atorvastatin Calcium 40 MG TAB PO SCH (21:37)
[2021-09-14 01:28] LABS: Anion Gap 13 mmol/L (10-20); BUN (Urea Nitrogen) 37 mg/dL (8.4-25.7); Calc. Creatinine Clearance 87 mL/min (70-130); Calcium 8.9 mg/dL (7.8-10.44); Carbon Dioxide 26 mmol/L (23-31); Chloride 107 mmol/L (98-107); Glucose 146 mg/dL (83-110); Magnesium 2.2 mg/dL (1.6-2.6); Potassium 4.2 mmol/L (3.5-5.1); Sodium 142 mmol/L (136-145)
[2021-09-14] MEDS: Carvedilol 25 MG TAB PER TUBE SCH ×2 (09:10→16:06)
[2021-09-14] MEDS: Aspirin 325 MG TAB PER TUBE SCH (09:10)
[2021-09-14] MEDS: Atorvastatin Calcium 40 MG TAB PO SCH (20:09)
[2021-09-15] MEDS: Aspirin 325 MG TAB PER TUBE SCH (08:12)
[2021-09-15] MEDS: Carvedilol 25 MG TAB PER TUBE SCH ×2 (08:12→17:05)
[2021-09-15] MEDS: Lisinopril 2.5 MG TAB PO SCH (08:13)
[2021-09-15] MEDS: Acetaminophen 325 MG TAB PO PRN (11:44)
[2021-09-15] MEDS ORDERED: Bisacodyl 5 MG TAB PO SCH (18:00)
[2021-09-15] MEDS ORDERED: Bisacodyl 10 MG SUPP PR SCH (18:00)
[2021-09-15] MEDS: Atorvastatin Calcium 40 MG TAB PO SCH (20:40)
[2021-09-16] MEDS: Acetaminophen 325 MG TAB PO PRN (08:48)
[2021-09-16] MEDS: Carvedilol 25 MG TAB PER TUBE SCH ×2 (08:49→18:28)
[2021-09-16] MEDS: Aspirin 325 MG TAB PER TUBE SCH (08:49)
[2021-09-16] MEDS: Polyethylene Glycol 3350 17 GM Packet PO SCH (08:49)
[2021-09-16] MEDS: Lisinopril 2.5 MG TAB PO SCH (08:49)
[2021-09-16] MEDS: Atorvastatin Calcium 40 MG TAB PO SCH (20:26)
[2021-09-17] MEDS: Carvedilol 25 MG TAB PER TUBE SCH ×2 (09:23→16:17)
[2021-09-17] MEDS: Lisinopril 2.5 MG TAB PO SCH (09:23)
[2021-09-17] MEDS: Polyethylene Glycol 3350 17 GM Packet PO SCH (09:23)
[2021-09-17] MEDS: Aspirin 325 MG TAB PER TUBE SCH (09:23)
[2021-09-17] MEDS: Acetaminophen 325 MG TAB PO PRN (11:19)
[2021-09-17] MEDS: Atorvastatin Calcium 40 MG TAB PO SCH (21:18)
[2021-09-18] MEDS: Acetaminophen 325 MG TAB PO PRN (04:55)
[2021-09-18 05:08] LABS: #Eosinphils 0.5 thou/uL (0.0-0.7); #Lymphocytes 1.6 thou/uL (1.20-3.40); #Monocytes 1.1 thou/uL (0.11-0.59); #Neutrophils 9.1 thou/uL (1.40-6.50); %Basophils 0.1 % (0.0-1.0); %Eosinophils 3.9 % (0.0-10.0); %Lymphocytes 13.3 % (21.0-51.0); %Monocytes 8.7 % (0.0-10.0); Hemoglobin 17.8 g/dL (14.0-18.0); Mean Corpuscular HGB CONC 32.8 g/dL (32.0-36.0); Mean Corpuscular Hemoglobin 32.5 pg (27.0-31.0); Mean Corpuscular Volume 99.3 fL (78.0-98.0); Mean Platelet Volume 9.3 fL (7.4-10.4); Platelet Count 191 thou/uL (130-400); RBC Distribution Width 12.3 % (11.5-14.5); Red Blood Cell (RBC) Count 5.48 mill/uL (4.70-6.10); White Blood Cell (WBC) Count 12.4 thou/uL (4.8-10.8)
[2021-09-18 05:22] LABS: Anion Gap 14 mmol/L (10-20); BUN (Urea Nitrogen) 29 mg/dL (8.4-25.7); Calc. Creatinine Clearance 91 mL/min (70-130); Calcium 8.7 mg/dL (7.8-10.44); Carbon Dioxide 21 mmol/L (23-31); Chloride 105 mmol/L (98-107); Glucose 146 mg/dL (83-110); Potassium 4.1 mmol/L (3.5-5.1); Sodium 136 mmol/L (136-145)
[2021-09-18] MEDS: HumaLOG 300 UNITS/3 ML VIAL SC PRN ×2 (06:37→18:25)
[2021-09-18] MEDS: Lisinopril 2.5 MG TAB PO SCH (08:39)
[2021-09-18] MEDS: Polyethylene Glycol 3350 17 GM Packet PO SCH ×2 (08:39→10:12)
[2021-09-18] MEDS: Aspirin 325 MG TAB PER TUBE SCH (08:39)
[2021-09-18] MEDS: Carvedilol 25 MG TAB PER TUBE SCH ×2 (08:40→17:13)
[2021-09-18] MEDS ORDERED: Enoxaparin Sodium 40 MG/0.4 ML SYRINGE SC SCH (11:15)
[2021-09-18] MEDS: Atorvastatin Calcium 40 MG TAB PO SCH (21:03)
[2021-09-19] MEDS: Polyethylene Glycol 3350 17 GM Packet PO SCH (08:56)
[2021-09-19] MEDS: Aspirin 325 MG TAB PER TUBE SCH (08:57)
[2021-09-19] MEDS: Lisinopril 2.5 MG TAB PO SCH (08:58)
[2021-09-19] MEDS: Carvedilol 25 MG TAB PER TUBE SCH ×2 (08:59→17:31)
[2021-09-19] MEDS ORDERED: Enoxaparin Sodium 40 MG/0.4 ML SYRINGE SC SCH (09:00)
[2021-09-19] MEDS: HumaLOG 300 UNITS/3 ML VIAL SC PRN ×2 (13:00→18:40)
[2021-09-19] MEDS ORDERED: Sodium Chloride 0.9% 500 ML IV SCH (16:00)
[2021-09-19 17:16] LABS: Bacteria/HPF None Seen HPF (None Seen); Bilirubin Negative (Negative); Blood, Urine 1+ (Negative); Clarity Clear (Clear); Glucose, Urine (Dipstick) Normal (Negative); Ketone, Urine Negative (Negative); Leukocyte Negative Leu/uL (Negative); Nitrite Negative (Negative); Protein, Urine (Dipstick) 300 mg/dL (Neg-Trace); RBC/HPF 0-3 HPF (0-3); Specific Gravity, Urine 1.021 (1.002-1.036); Sperm/HPF Rare HPF (None Seen); Squamous Epithelial None Seen HPF (0-3); WBC/HPF 0-3 HPF (0-3); pH, Urine 6.5 (5.0-9.0)
[2021-09-19] MEDS: Atorvastatin Calcium 40 MG TAB PO SCH (20:47)
[2021-09-19] MEDS: Acetaminophen 325 MG TAB PO PRN (21:54)
[2021-09-20] MEDS: HYDROcodone/Acetaminophen 5/325 mg Tablet PO PRN (00:22)
[2021-09-20 00:48] LABS: SARS-CoV-2 PCR by NAA Not Detected (NotDetected)
[2021-09-20 06:20] LABS: #Eosinphils 0.2 thou/uL (0.0-0.7); #Lymphocytes 1.5 thou/uL (1.20-3.40); #Monocytes 1.3 thou/uL (0.11-0.59); #Neutrophils 10.4 thou/uL (1.40-6.50); %Basophils 0.2 % (0.0-1.0); %Eosinophils 1.5 % (0.0-10.0); %Lymphocytes 11.4 % (21.0-51.0); %Monocytes 9.6 % (0.0-10.0); %Neutrophils 77.2 % (42.0-75.0); Hemoglobin 16.6 g/dL (14.0-18.0); Mean Corpuscular Hemoglobin 31.7 pg (27.0-31.0); Mean Corpuscular Volume 98.9 fL (78.0-98.0); Mean Platelet Volume 8.2 fL (7.4-10.4); Platelet Count 174 thou/uL (130-400); RBC Distribution Width 12.2 % (11.5-14.5); Red Blood Cell (RBC) Count 5.22 mill/uL (4.70-6.10); White Blood Cell (WBC) Count 13.5 thou/uL (4.8-10.8)
[2021-09-20 06:47] LABS: Anion Gap 11 mmol/L (10-20); BUN (Urea Nitrogen) 22 mg/dL (8.4-25.7); Calc. Creatinine Clearance 90 mL/min (70-130); Calcium 8.3 mg/dL (7.8-10.44); Carbon Dioxide 28 mmol/L (23-31); Chloride 105 mmol/L (98-107); Glucose 111 mg/dL (83-110); Magnesium 1.9 mg/dL (1.6-2.6); Sodium 140 mmol/L (136-145)
[2021-09-20] MEDS: Acetaminophen 325 MG TAB PO PRN ×2 (09:47→21:28)
[2021-09-20] MEDS: Aspirin 325 MG TAB PER TUBE SCH (09:47)
[2021-09-20] MEDS: Lisinopril 2.5 MG TAB PO SCH (09:48)
[2021-09-20] MEDS: Polyethylene Glycol 3350 17 GM Packet PO SCH (09:48)
[2021-09-20] MEDS: Carvedilol 25 MG TAB PER TUBE SCH ×2 (09:48→18:33)
[2021-09-20 09:55] VITALS: BMI 26.6
[2021-09-20] MEDS: HumaLOG 300 UNITS/3 ML VIAL SC PRN ×2 (11:06→21:29)
[2021-09-20] MEDS: Atorvastatin Calcium 40 MG TAB PO SCH (21:29)
[2021-09-21] MEDS: Acetaminophen 325 MG TAB PO PRN (06:35)
[2021-09-21] MEDS: Carvedilol 25 MG TAB PER TUBE SCH ×2 (08:57→16:16)
[2021-09-21] MEDS: Aspirin 325 MG TAB PER TUBE SCH (08:57)
[2021-09-21] MEDS: Lisinopril 2.5 MG TAB PO SCH (08:57)
[2021-09-21] MEDS: Polyethylene Glycol 3350 17 GM Packet PO SCH (08:57)
[2021-09-21] MEDS: HYDROcodone/Acetaminophen 5/325 mg Tablet PO PRN ×3 (12:56→20:47)
[2021-09-21] MEDS ORDERED: Gabapentin 100 MG CAP PO SCH (15:45)
[2021-09-21] MEDS: Atorvastatin Calcium 40 MG TAB PO SCH (20:48)
[2021-09-22] MEDS ORDERED: Gabapentin 100 MG CAP PO SCH (09:00)
[2021-09-22] MEDS: Aspirin 325 MG TAB PER TUBE SCH (09:59)
[2021-09-22] MEDS: Lisinopril 2.5 MG TAB PO SCH (09:59)
[2021-09-22] MEDS: Polyethylene Glycol 3350 17 GM Packet PO SCH (09:59)
[2021-09-22] MEDS: Carvedilol 25 MG TAB PER TUBE SCH ×2 (09:59→16:57)
[2021-09-22 16:18] VITALS: BP 114/77; TEMP 97.4
[2021-09-22] MEDS: HumaLOG 300 UNITS/3 ML VIAL SC PRN (18:47)
== END 2021-09-22 19:35 | DRG 64 ==
LOC: ERS 23:39 → NEURO 09-06 01:44 → CCU 09-08 20:47 → NEURO 09-13 16:51
PROVIDERS: ADMIT Student in an Organized Health Care Education/Training Program; ATTEND Internal Medicine
PROC: 0DH67UZ Insertion of Feeding Device into Stomach, Via Natural or Artificial Opening (ICD-10-PCS; principal; 2021-09-08)
DX: I63.511 Cerebral infarction due to unspecified occlusion or stenosis of right middle cerebral artery (principal); I21.A1 Myocardial infarction type 2; G93.6 Cerebral edema; E87.1 Hypo-osmolality and hyponatremia; I47.1 Supraventricular tachycardia; G81.94 Hemiplegia, unspecified affecting left nondominant side; I42.0 Dilated cardiomyopathy; I62.9 Nontraumatic intracranial hemorrhage, unspecified; I50.22 Chronic systolic (congestive) heart failure; E88.09 Other disorders of plasma-protein metabolism, not elsewhere classified; I48.0 Paroxysmal atrial fibrillation; I73.9 Peripheral vascular disease, unspecified; R33.9 Retention of urine, unspecified; Z66 Do not resuscitate; R29.723 NIHSS score 23; I65.23 Occlusion and stenosis of bilateral carotid arteries; E78.5 Hyperlipidemia, unspecified; I25.10 Atherosclerotic heart disease of native coronary artery without angina pectoris; I49.5 Sick sinus syndrome; G47.37 Central sleep apnea in conditions classified elsewhere; I25.5 Ischemic cardiomyopathy; R13.10 Dysphagia, unspecified; R50.9 Fever, unspecified; R29.810 Facial weakness; E78.00 Pure hypercholesterolemia, unspecified; I11.0 Hypertensive heart disease with heart failure; R47.1 Dysarthria and anarthria; Z20.822 Contact with and (suspected) exposure to COVID-19; Z51.5 Encounter for palliative care; Z95.1 Presence of aortocoronary bypass graft; Z79.82 Long term (current) use of aspirin; Z91.14 Patient's other noncompliance with medication regimen; Z95.810 Presence of automatic (implantable) cardiac defibrillator; Z79.899 Other long term (current) drug therapy; Z79.01 Long term (current) use of anticoagulants
CPT/HCPCS: 36415; 36416; 51701; 70450; 70496; 70498; 71045; 74018; 74230; 80048; 80053; 80061; 81001; 81003; 81015; 82553; 83036; 83735; 83930; 84443; 84484; 85025; 85610; 85730; 87040; 93005; 93306; 93923; 95712; 95819; 95957; J0360; J1815; J2150; J7030; J7050; Q9967; U0003; U0005

== ENCOUNTER 2022-06-01 14:21 | Emergency (ER) | payer MEDICARE, MEDICAID ==
[2022-06-01] MEDS ORDERED: Ketorolac Tromethamine 30 MG/ML VIAL ONE (15:42)
[2022-06-01] MEDS ORDERED: Cefepime 2 GM VIAL ONE (15:42)
[2022-06-01] MEDS ORDERED: VANCOMYCIN 2 GRAM/500 ML BAG 2 GM in Premix Bag 1 BAG IVPB SCH (15:45)
[2022-06-01 15:59] LABS: #Basophils 0.1 thou/uL (0.0-0.2); #Eosinphils 0.3 thou/uL (0.0-0.7); #Lymphocytes 1.6 thou/uL (1.20-3.40); #Monocytes 1.1 thou/uL (0.11-0.59); #Neutrophils 7.3 thou/uL (1.40-6.50); %Basophils 0.5 % (0.0-1.0); %Eosinophils 2.7 % (0.0-10.0); %Lymphocytes 15.3 % (21.0-51.0); %Monocytes 10.8 % (0.0-10.0); %Neutrophils 70.6 % (42.0-75.0); Hemoglobin 16.1 g/dL (14.0-18.0); Mean Corpuscular HGB CONC 33.2 g/dL (32.0-36.0); Mean Corpuscular Hemoglobin 31.2 pg (27.0-31.0); Mean Platelet Volume 8.5 fL (7.4-10.4); Platelet Count 211 10x3/uL (130-400); RBC Distribution Width 12.3 % (11.5-14.5); Red Blood Cell (RBC) Count 5.17 mill/uL (4.70-6.10); White Blood Cell (WBC) Count 10.4 10x3/uL (4.8-10.8)
[2022-06-01 16:28] LABS: ALT (SGPT) 17 U/L (8-55); AST (SGOT) 26 U/L (5-34); Albumin 3.3 g/dL (3.4-4.8); Alkaline Phosphatase 98 U/L (40-110); Anion Gap 14 mmol/L (10-20); BUN (Urea Nitrogen) 19 mg/dL (8.4-25.7); CK (CPK) 214 U/L (30-200); Calc. Creatinine Clearance 0 mL/min (70-130); Calcium 9.3 mg/dL (7.8-10.44); Carbon Dioxide 24 mmol/L (23-31); Chloride 103 mmol/L (98-107); Estimated GFR 91; Globulin 4.2 g/dL (2.4-3.5); Glucose 111 mg/dL (83-110); Potassium 4.4 mmol/L (3.5-5.1); Protein, Total 7.5 g/dL (5.8-8.1); Sodium 137 mmol/L (136-145)
== END 2022-06-01 18:22 | disposition home or self-care (01) ==
LOC: ERS 14:21
DX: L03.116 Cellulitis of left lower limb (principal); L97.529 Non-pressure chronic ulcer of other part of left foot with unspecified severity; I10 Essential (primary) hypertension; Z86.73 Personal history of transient ischemic attack (TIA), and cerebral infarction without residual deficits; Z95.0 Presence of cardiac pacemaker
CPT/HCPCS: 80053; 82550; 83605; 85025; 87040; 93971; 96365; 96366; 96367; 96375; 99284; J3370; J0692; J1885

== ENCOUNTER 2022-06-02 20:38 | Emergency (ER) | payer MEDICARE, MEDICAID | END 2022-06-02 23:24 | disposition home or self-care (01) | LOC: ERS 20:38 | DX: L03.116 Cellulitis of left lower limb (principal); M62.838 Other muscle spasm; I10 Essential (primary) hypertension | CPT/HCPCS: 99283 ==

== ENCOUNTER 2022-06-08 11:39 | Emergency (ER) | payer MEDICARE, MEDICAID ==
[2022-06-08 14:20] LABS: #Eosinphils 0.7 thou/uL (0.0-0.7); #Lymphocytes 1.7 thou/uL (1.20-3.40); #Monocytes 0.9 thou/uL (0.11-0.59); #Neutrophils 6.6 thou/uL (1.40-6.50); %Basophils 0.1 % (0.0-1.0); %Eosinophils 6.8 % (0.0-10.0); %Lymphocytes 17.3 % (21.0-51.0); %Monocytes 8.9 % (0.0-10.0); %Neutrophils 66.9 % (42.0-75.0); Mean Corpuscular HGB CONC 32.2 g/dL (32.0-36.0); Mean Corpuscular Hemoglobin 30.3 pg (27.0-31.0); Mean Platelet Volume 7.8 fL (7.4-10.4); Platelet Count 236 10x3/uL (130-400); RBC Distribution Width 12.2 % (11.5-14.5); Red Blood Cell (RBC) Count 4.95 mill/uL (4.70-6.10); White Blood Cell (WBC) Count 9.9 10x3/uL (4.8-10.8)
[2022-06-08 14:46] LABS: ALT (SGPT) 16 U/L (8-55); AST (SGOT) 29 U/L (5-34); Albumin 3.4 g/dL (3.4-4.8); Alkaline Phosphatase 96 U/L (40-110); Anion Gap 15 mmol/L (10-20); BUN (Urea Nitrogen) 21 mg/dL (8.4-25.7); Bilirubin, Total 0.5 mg/dL (0.2-1.2); Calc. Creatinine Clearance 0 mL/min (70-130); Calcium 9.1 mg/dL (7.8-10.44); Carbon Dioxide 19 mmol/L (23-31); Chloride 107 mmol/L (98-107); Estimated GFR 85; Globulin 4.2 g/dL (2.4-3.5); Glucose 90 mg/dL (83-110); Potassium 4.5 mmol/L (3.5-5.1); Protein, Total 7.6 g/dL (5.8-8.1); Sodium 136 mmol/L (136-145)
[2022-06-08] MEDS ORDERED: GASTROGRAFIN 30 ML BOT ONE (15:22)
[2022-06-08] MEDS ORDERED: Iopamidol-370 76% 500 ML 1 ML ONE (15:22)
[2022-06-08] MEDS ORDERED: Acetaminophen 500 MG TAB ONE (17:13)
== END 2022-06-08 17:38 | disposition home or self-care (01) ==
LOC: ERS 11:39
DX: K59.00 Constipation, unspecified (principal); L03.032 Cellulitis of left toe; I10 Essential (primary) hypertension
CPT/HCPCS: 74177; 80053; 83605; 85025; Q9963; Q9967

== ENCOUNTER 2022-07-22 12:46 | Inpatient (IN) | payer MEDICARE, MEDICAID ==
[2022-07-22 15:19] LABS: #Eosinphils 0.3 thou/uL (0.0-0.7); #Lymphocytes 1.7 thou/uL (1.20-3.40); #Monocytes 1.1 thou/uL (0.11-0.59); #Neutrophils 8.8 thou/uL (1.40-6.50); %Basophils 0.4 % (0.0-1.0); %Eosinophils 2.3 % (0.0-10.0); %Monocytes 9.1 % (0.0-10.0); %Neutrophils 74.2 % (42.0-75.0); Mean Corpuscular Hemoglobin 31.4 pg (27.0-31.0); Mean Corpuscular Volume 95.2 fl (78.0-98.0); Mean Platelet Volume 9.2 fL (7.4-10.4); Platelet Count 205 10x3/uL (130-400); RBC Distribution Width 12.7 % (11.5-14.5); Red Blood Cell (RBC) Count 4.77 mill/uL (4.70-6.10); White Blood Cell (WBC) Count 11.9 10x3/uL (4.8-10.8)
[2022-07-22 15:30] LABS: ALT (SGPT) 17 U/L (8-55); AST (SGOT) 28 U/L (5-34); Alkaline Phosphatase 82 U/L (40-110); Anion Gap 15 mmol/L (10-20); BUN (Urea Nitrogen) 19 mg/dL (8.4-25.7); Bilirubin, Total 0.9 mg/dL (0.2-1.2); Calc. Creatinine Clearance 0 mL/min (70-130); Carbon Dioxide 26 mmol/L (23-31); Chloride 103 mmol/L (98-107); Estimated GFR 91; Globulin 3.7 g/dL (2.4-3.5); Glucose 121 mg/dL (83-110); Protein, Total 6.7 g/dL (5.8-8.1); Sodium 139 mmol/L (136-145)
[2022-07-22] MEDS ORDERED: VANCOMYCIN 2 GRAM/500 ML BAG 2 GM in Premix Bag 1 BAG IVPB SCH (15:30)
[2022-07-22] MEDS ORDERED: Senokot S 8.6-50 MG TAB PO PRN (16:00)
[2022-07-22] MEDS ORDERED: Bisacodyl 10 MG SUPP PR PRN (16:00)
[2022-07-22] MEDS ORDERED: Acetaminophen 325 MG TAB PO PRN (16:00)
[2022-07-22] MEDS ORDERED: Bisacodyl 5 MG TAB PO PRN (16:00)
[2022-07-22] MEDS ORDERED: Ondansetron PF 4 MG/2 ML Vial IVP PRN (16:00)
[2022-07-22] MEDS ORDERED: Boostrix 0.5 ML (Tdap) VIAL (>/=7 yrs of age) IM ONE (17:03)
[2022-07-22] MEDS ORDERED: Pharmacy to Dose VANC AND CEFEPIME IVPB PRN (17:15)
[2022-07-22 17:17] VITALS: BMI 24.7
[2022-07-22 17:48] LABS: Actual Bicarbonate (HCO3v) 27 mEq/L (22-28); Base Excess 2.8 mEq/L (-2.0 to +3.0); Calcium, Ionized (venous) 1.11 mmol/L (1.16-1.32); Chloride (VBG) 104 mmol/L (98-106); Hemoglobin (Hb) 15.3 g/dL (12.6-17.4); Potassium (VBG) 3.88 mmol/L (3.70-5.30); Sodium 137.8 mmol/L (133-146); pH (venous) 7.46 (7.32-7.43)
[2022-07-22] MEDS: Cefepime 2 GM in Sodium Chloride 0.9% 100 ML IVPB SCH (18:51)
[2022-07-22] MEDS ORDERED: Vancomycin 1 GM in Premix Bag 1 BAG IVPB SCH (21:00)
[2022-07-22] MEDS: HYDROcodone/Acetaminophen 5/325 mg Tablet PO PRN (21:30)
[2022-07-22] MEDS: Gabapentin 100 MG CAP PO SCH (21:32)
[2022-07-22] MEDS: Atorvastatin Calcium 40 MG TAB PO SCH (21:32)
[2022-07-22] MEDS: Senokot S 8.6-50 MG TAB PO SCH (21:34)
[2022-07-22] MEDS: Baclofen 10 MG TAB PO SCH (21:34)
[2022-07-23 05:38] LABS: Hemoglobin A1c 5.9 % (4.0-6.0)
[2022-07-23 05:40] LABS: #Basophils 0.1 thou/uL (0.0-0.2); #Eosinphils 0.3 thou/uL (0.0-0.7); #Lymphocytes 1.5 thou/uL (1.20-3.40); #Neutrophils 8.2 thou/uL (1.40-6.50); %Basophils 0.7 % (0.0-1.0); %Eosinophils 2.6 % (0.0-10.0); %Lymphocytes 13.8 % (21.0-51.0); %Monocytes 9.1 % (0.0-10.0); %Neutrophils 73.8 % (42.0-75.0); Hemoglobin 14.1 g/dL (14.0-18.0); Mean Corpuscular HGB CONC 32.8 g/dL (32.0-36.0); Mean Corpuscular Hemoglobin 30.9 pg (27.0-31.0); Mean Corpuscular Volume 94.2 fl (78.0-98.0); Mean Platelet Volume 8.9 fL (7.4-10.4); Platelet Count 203 10x3/uL (130-400); RBC Distribution Width 12.6 % (11.5-14.5); Red Blood Cell (RBC) Count 4.55 mill/uL (4.70-6.10); White Blood Cell (WBC) Count 11.1 10x3/uL (4.8-10.8)
[2022-07-23 06:02] LABS: ALT (SGPT) 14 U/L (8-55); AST (SGOT) 22 U/L (5-34); Albumin 3.2 g/dL (3.4-4.8); Alkaline Phosphatase 82 U/L (40-110); Anion Gap 15 mmol/L (10-20); BUN (Urea Nitrogen) 19 mg/dL (8.4-25.7); Bilirubin, Direct 0.5 mg/dL (0.1-0.3); Bilirubin, Total 0.8 mg/dL (0.2-1.2); CRP (Inflammatory) 8.92 mg/dL (= or < 0.5); Calc. Creatinine Clearance 80 mL/min (70-130); Calcium 8.8 mg/dL (7.8-10.44); Carbon Dioxide 21 mmol/L (23-31); Chloride 107 mmol/L (98-107); Estimated GFR 92; Glucose 113 mg/dL (83-110); Magnesium 1.8 mg/dL (1.6-2.6); Potassium 3.9 mmol/L (3.5-5.1); Protein, Total 6.8 g/dL (5.8-8.1); Sodium 139 mmol/L (136-145)
[2022-07-23] MEDS: Cefepime 2 GM in Sodium Chloride 0.9% 100 ML IVPB SCH ×2 (08:08→19:04)
[2022-07-23] MEDS: Baclofen 10 MG TAB PO SCH ×3 (08:08→21:29)
[2022-07-23] MEDS: VANCOMYCIN 750 MG/250 ML BAG 750 MG in Sodium Chloride 0.9% 250 ML 250 ML IVPB SCH ×2 (08:08→16:49)
[2022-07-23] MEDS: Polyethylene Glycol 3350 17 GM Packet PO SCH (08:09)
[2022-07-23] MEDS: Gabapentin 100 MG CAP PO SCH ×2 (08:09→21:23)
[2022-07-23] MEDS: Aspirin Chewable 81 MG TAB PO SCH (08:10)
[2022-07-23] MEDS: Senokot S 8.6-50 MG TAB PO SCH ×2 (08:10→21:23)
[2022-07-23] MEDS: HYDROcodone/Acetaminophen 5/325 mg Tablet PO PRN (15:51)
[2022-07-23] MEDS: Atorvastatin Calcium 40 MG TAB PO SCH (21:24)
[2022-07-24] MEDS: HYDROcodone/Acetaminophen 5/325 mg Tablet PO PRN ×2 (03:32→18:24)
[2022-07-24] MEDS: Cefepime 2 GM in Sodium Chloride 0.9% 100 ML IVPB SCH ×2 (04:54→17:26)
[2022-07-24 05:29] LABS: #Eosinphils 0.3 thou/uL (0.0-0.7); #Lymphocytes 1.2 thou/uL (1.20-3.40); #Monocytes 0.8 thou/uL (0.11-0.59); #Neutrophils 7.9 thou/uL (1.40-6.50); %Basophils 0.1 % (0.0-1.0); %Eosinophils 3.2 % (0.0-10.0); %Lymphocytes 11.7 % (21.0-51.0); %Monocytes 8.2 % (0.0-10.0); %Neutrophils 76.9 % (42.0-75.0); Hemoglobin 14.5 g/dL (14.0-18.0); Mean Corpuscular HGB CONC 33.1 g/dL (32.0-36.0); Mean Corpuscular Hemoglobin 31.4 pg (27.0-31.0); Mean Corpuscular Volume 94.8 fl (78.0-98.0); Mean Platelet Volume 8.7 fL (7.4-10.4); Platelet Count 211 10x3/uL (130-400); RBC Distribution Width 12.6 % (11.5-14.5); Red Blood Cell (RBC) Count 4.61 mill/uL (4.70-6.10); White Blood Cell (WBC) Count 10.3 10x3/uL (4.8-10.8)
[2022-07-24 05:47] LABS: Vancomycin, Trough 7.9 ug/mL
[2022-07-24 05:54] LABS: Anion Gap 11 mmol/L (10-20); BUN (Urea Nitrogen) 16 mg/dL (8.4-25.7); Calc. Creatinine Clearance 80 mL/min (70-130); Carbon Dioxide 26 mmol/L (23-31); Chloride 105 mmol/L (98-107); Estimated GFR 92; Glucose 125 mg/dL (83-110); Magnesium 1.8 mg/dL (1.6-2.6); Sodium 138 mmol/L (136-145)
[2022-07-24] MEDS: Baclofen 10 MG TAB PO SCH ×3 (06:23→21:24)
[2022-07-24] MEDS ORDERED: Vancomycin 1 GM in Premix Bag 1 BAG IVPB SCH (06:30)
[2022-07-24] MEDS: VANCOMYCIN 750 MG/250 ML BAG 750 MG in Sodium Chloride 0.9% 250 ML 250 ML IVPB SCH (06:51)
[2022-07-24] MEDS: Polyethylene Glycol 3350 17 GM Packet PO SCH (08:11)
[2022-07-24] MEDS: Gabapentin 100 MG CAP PO SCH ×2 (08:11→21:23)
[2022-07-24] MEDS: Aspirin Chewable 81 MG TAB PO SCH (08:11)
[2022-07-24] MEDS: Senokot S 8.6-50 MG TAB PO SCH ×2 (08:11→21:23)
[2022-07-24] MEDS: DULoxetine 60 MG CAP PO SCH (08:11)
[2022-07-24] MEDS ORDERED: Morphine 2 MG/ML VIAL SLOW IVP PRN (12:21)
[2022-07-24] MEDS: Vancomycin 1 GM in Premix Bag 1 BAG IVPB SCH (18:36)
[2022-07-24] MEDS: Atorvastatin Calcium 40 MG TAB PO SCH (21:21)
[2022-07-25] MEDS: Cefepime 2 GM in Sodium Chloride 0.9% 100 ML IVPB SCH ×2 (04:52→17:45)
[2022-07-25] MEDS: Baclofen 10 MG TAB PO SCH ×3 (04:52→21:05)
[2022-07-25] MEDS: HYDROcodone/Acetaminophen 5/325 mg Tablet PO PRN ×2 (04:56→09:47)
[2022-07-25] MEDS: Vancomycin 1 GM in Premix Bag 1 BAG IVPB SCH ×2 (06:00→18:34)
[2022-07-25 07:23] LABS: #Basophils 0.1 thou/uL (0.0-0.2); #Eosinphils 0.4 thou/uL (0.0-0.7); #Lymphocytes 1.7 thou/uL (1.20-3.40); #Monocytes 1.1 thou/uL (0.11-0.59); %Basophils 0.6 % (0.0-1.0); %Eosinophils 3.9 % (0.0-10.0); %Lymphocytes 16.9 % (21.0-51.0); %Monocytes 10.4 % (0.0-10.0); %Neutrophils 68.1 % (42.0-75.0); Hemoglobin 14.4 g/dL (14.0-18.0); Mean Corpuscular Hemoglobin 31.2 pg (27.0-31.0); Mean Corpuscular Volume 94.4 fl (78.0-98.0); Mean Platelet Volume 8.3 fL (7.4-10.4); Platelet Count 231 10x3/uL (130-400); RBC Distribution Width 12.5 % (11.5-14.5); Red Blood Cell (RBC) Count 4.63 mill/uL (4.70-6.10); White Blood Cell (WBC) Count 10.3 10x3/uL (4.8-10.8)
[2022-07-25 07:40] LABS: Anion Gap 11 mmol/L (10-20); BUN (Urea Nitrogen) 14 mg/dL (8.4-25.7); Calc. Creatinine Clearance 82 mL/min (70-130); Calcium 9.1 mg/dL (7.8-10.44); Carbon Dioxide 26 mmol/L (23-31); Chloride 105 mmol/L (98-107); Estimated GFR 93; Glucose 119 mg/dL (83-110); Magnesium 1.8 mg/dL (1.6-2.6); Potassium 4.2 mmol/L (3.5-5.1); Sodium 138 mmol/L (136-145)
[2022-07-25] MEDS: Gabapentin 100 MG CAP PO SCH (09:46)
[2022-07-25] MEDS: Polyethylene Glycol 3350 17 GM Packet PO SCH (09:46)
[2022-07-25] MEDS: Senokot S 8.6-50 MG TAB PO SCH ×2 (09:48→20:48)
[2022-07-25] MEDS: Aspirin Chewable 81 MG TAB PO SCH (09:48)
[2022-07-25] MEDS: DULoxetine 60 MG CAP PO SCH (09:48)
[2022-07-25 13:56] LABS: Troponin I 0.125 ng/mL (< 0.028)
[2022-07-25] MEDS ORDERED: Carvedilol 3.125 MG TAB PO SCH (17:00)
[2022-07-25 17:47] LABS: Vancomycin, Trough 13.1 ug/mL
[2022-07-25 18:34] LABS: Troponin I 0.121 ng/mL (< 0.028)
[2022-07-25] MEDS: Atorvastatin Calcium 40 MG TAB PO SCH (20:46)
[2022-07-25] MEDS: Gabapentin 300 MG CAP PO SCH (20:47)
[2022-07-26] MEDS: Cefepime 2 GM in Sodium Chloride 0.9% 100 ML IVPB SCH (05:02)
[2022-07-26] MEDS: Vancomycin 1 GM in Premix Bag 1 BAG IVPB SCH (05:02)
[2022-07-26] MEDS: Baclofen 10 MG TAB PO SCH ×3 (05:17→21:19)
[2022-07-26] MEDS ORDERED: Spironolactone 25 MG TAB PO SCH (08:00)
[2022-07-26] MEDS: Senokot S 8.6-50 MG TAB PO SCH ×2 (08:07→21:17)
[2022-07-26] MEDS: DULoxetine 60 MG CAP PO SCH (08:07)
[2022-07-26] MEDS: HYDROcodone/Acetaminophen 5/325 mg Tablet PO PRN ×2 (08:09→21:19)
[2022-07-26] MEDS: Gabapentin 300 MG CAP PO SCH ×2 (08:09→21:17)
[2022-07-26] MEDS: Aspirin Chewable 81 MG TAB PO SCH (08:10)
[2022-07-26] MEDS: Polyethylene Glycol 3350 17 GM Packet PO SCH (08:11)
[2022-07-26] MEDS ORDERED: Lisinopril 5 MG TAB PO SCH (09:00)
[2022-07-26 09:01] LABS: #Eosinphils 0.3 thou/uL (0.0-0.7); #Lymphocytes 1.3 thou/uL (1.20-3.40); #Monocytes 0.8 thou/uL (0.11-0.59); #Neutrophils 6.4 thou/uL (1.40-6.50); %Basophils 0.1 % (0.0-1.0); %Eosinophils 3.9 % (0.0-10.0); %Lymphocytes 15.2 % (21.0-51.0); %Monocytes 8.5 % (0.0-10.0); %Neutrophils 72.3 % (42.0-75.0); Hemoglobin 14.9 g/dL (14.0-18.0); Mean Corpuscular HGB CONC 30.9 g/dL (32.0-36.0); Mean Corpuscular Hemoglobin 29.7 pg (27.0-31.0); Mean Corpuscular Volume 96.3 fl (78.0-98.0); Mean Platelet Volume 9.5 fL (7.4-10.4); Platelet Count 178 10x3/uL (130-400); RBC Distribution Width 12.8 % (11.5-14.5); Red Blood Cell (RBC) Count 5.03 mill/uL (4.70-6.10); White Blood Cell (WBC) Count 8.8 10x3/uL (4.8-10.8)
[2022-07-26 09:03] LABS: Anion Gap 12 mmol/L (10-20); BUN (Urea Nitrogen) 14 mg/dL (8.4-25.7); Calc. Creatinine Clearance 86 mL/min (70-130); Calcium 8.8 mg/dL (7.8-10.44); Carbon Dioxide 24 mmol/L (23-31); Chloride 105 mmol/L (98-107); Estimated GFR 94; Glucose 145 mg/dL (83-110); Magnesium 1.8 mg/dL (1.6-2.6); Potassium 3.8 mmol/L (3.5-5.1); Sodium 137 mmol/L (136-145)
[2022-07-26] MEDS: Atorvastatin Calcium 40 MG TAB PO SCH (21:17)
[2022-07-27] MEDS: Baclofen 10 MG TAB PO SCH ×3 (06:21→20:50)
[2022-07-27 06:37] LABS: #Eosinphils 0.4 thou/uL (0.0-0.7); #Lymphocytes 2.1 thou/uL (1.20-3.40); #Neutrophils 7.2 thou/uL (1.40-6.50); %Basophils 0.2 % (0.0-1.0); %Lymphocytes 19.2 % (21.0-51.0); %Monocytes 9.6 % (0.0-10.0); %Neutrophils 67.1 % (42.0-75.0); Hemoglobin 14.8 g/dL (14.0-18.0); Mean Corpuscular HGB CONC 33.2 g/dL (32.0-36.0); Mean Corpuscular Hemoglobin 31.3 pg (27.0-31.0); Mean Corpuscular Volume 94.4 fl (78.0-98.0); Mean Platelet Volume 8.3 fL (7.4-10.4); Platelet Count 240 10x3/uL (130-400); RBC Distribution Width 12.6 % (11.5-14.5); Red Blood Cell (RBC) Count 4.74 mill/uL (4.70-6.10); White Blood Cell (WBC) Count 10.8 10x3/uL (4.8-10.8)
[2022-07-27 06:59] LABS: Anion Gap 11 mmol/L (10-20); BUN (Urea Nitrogen) 16 mg/dL (8.4-25.7); Calc. Creatinine Clearance 86 mL/min (70-130); Calcium 9.1 mg/dL (7.8-10.44); Carbon Dioxide 27 mmol/L (23-31); Chloride 107 mmol/L (98-107); Estimated GFR 94; Glucose 91 mg/dL (83-110); Magnesium 1.9 mg/dL (1.6-2.6); Potassium 3.8 mmol/L (3.5-5.1); Sodium 141 mmol/L (136-145)
[2022-07-27] MEDS: HYDROcodone/Acetaminophen 5/325 mg Tablet PO PRN (08:47)
[2022-07-27] MEDS: Polyethylene Glycol 3350 17 GM Packet PO SCH (08:47)
[2022-07-27] MEDS: DULoxetine 60 MG CAP PO SCH (08:48)
[2022-07-27] MEDS: Aspirin Chewable 81 MG TAB PO SCH (08:48)
[2022-07-27] MEDS: Gabapentin 300 MG CAP PO SCH ×2 (08:48→20:50)
[2022-07-27] MEDS: Senokot S 8.6-50 MG TAB PO SCH ×2 (08:48→20:49)
[2022-07-27] MEDS ORDERED: Milk Of Magnesia 30 ML UDCUP PO SCH (14:15)
[2022-07-27] MEDS: Atorvastatin Calcium 40 MG TAB PO SCH (20:49)
[2022-07-27] MEDS: metroNIDAZOLE 250 MG TAB PO SCH (20:50)
[2022-07-28] MEDS: Baclofen 10 MG TAB PO SCH ×3 (06:24→20:30)
[2022-07-28 06:59] LABS: #Basophils 0.1 thou/uL (0.0-0.2); #Eosinphils 0.5 thou/uL (0.0-0.7); #Neutrophils 6.7 thou/uL (1.40-6.50); %Basophils 0.6 % (0.0-1.0); %Eosinophils 4.6 % (0.0-10.0); %Lymphocytes 19.6 % (21.0-51.0); %Monocytes 9.6 % (0.0-10.0); %Neutrophils 65.5 % (42.0-75.0); Hemoglobin 14.6 g/dL (14.0-18.0); Mean Corpuscular HGB CONC 33.3 g/dL (32.0-36.0); Mean Corpuscular Hemoglobin 31.1 pg (27.0-31.0); Mean Corpuscular Volume 93.5 fl (78.0-98.0); Mean Platelet Volume 8.9 fL (7.4-10.4); Platelet Count 226 10x3/uL (130-400); RBC Distribution Width 12.7 % (11.5-14.5); Red Blood Cell (RBC) Count 4.69 mill/uL (4.70-6.10); White Blood Cell (WBC) Count 10.2 10x3/uL (4.8-10.8)
[2022-07-28 07:19] LABS: Anion Gap 12 mmol/L (10-20); BUN (Urea Nitrogen) 15 mg/dL (8.4-25.7); Calc. Creatinine Clearance 86 mL/min (70-130); Calcium 9.1 mg/dL (7.8-10.44); Carbon Dioxide 25 mmol/L (23-31); Chloride 107 mmol/L (98-107); Estimated GFR 94; Glucose 95 mg/dL (83-110); Magnesium 1.9 mg/dL (1.6-2.6); Sodium 140 mmol/L (136-145)
[2022-07-28] MEDS: DULoxetine 60 MG CAP PO SCH (08:49)
[2022-07-28] MEDS: Aspirin Chewable 81 MG TAB PO SCH (08:49)
[2022-07-28] MEDS: metroNIDAZOLE 250 MG TAB PO SCH ×3 (08:49→20:30)
[2022-07-28] MEDS: Senokot S 8.6-50 MG TAB PO SCH ×2 (08:49→20:35)
[2022-07-28] MEDS: Gabapentin 300 MG CAP PO SCH ×2 (08:49→20:30)
[2022-07-28] MEDS: Polyethylene Glycol 3350 17 GM Packet PO SCH (08:50)
[2022-07-28] MEDS: HYDROcodone/Acetaminophen 5/325 mg Tablet PO PRN ×2 (09:24→14:46)
[2022-07-28] MEDS: Atorvastatin Calcium 40 MG TAB PO SCH (20:29)
[2022-07-29] MEDS: Baclofen 10 MG TAB PO SCH ×3 (05:40→23:27)
[2022-07-29 06:39] LABS: #Eosinphils 0.5 thou/uL (0.0-0.7); #Lymphocytes 1.8 thou/uL (1.20-3.40); #Monocytes 0.8 thou/uL (0.11-0.59); #Neutrophils 5.7 thou/uL (1.40-6.50); %Basophils 0.2 % (0.0-1.0); %Eosinophils 6.1 % (0.0-10.0); %Lymphocytes 20.4 % (21.0-51.0); %Neutrophils 64.2 % (42.0-75.0); Hemoglobin 14.7 g/dL (14.0-18.0); Mean Corpuscular HGB CONC 32.8 g/dL (32.0-36.0); Mean Corpuscular Volume 94.6 fl (78.0-98.0); Mean Platelet Volume 8.4 fL (7.4-10.4); Platelet Count 240 10x3/uL (130-400); RBC Distribution Width 12.8 % (11.5-14.5); Red Blood Cell (RBC) Count 4.73 mill/uL (4.70-6.10); White Blood Cell (WBC) Count 8.9 10x3/uL (4.8-10.8)
[2022-07-29 06:57] LABS: Anion Gap 12 mmol/L (10-20); BUN (Urea Nitrogen) 16 mg/dL (8.4-25.7); Calc. Creatinine Clearance 83 mL/min (70-130); Calcium 9.1 mg/dL (7.8-10.44); Carbon Dioxide 25 mmol/L (23-31); Chloride 107 mmol/L (98-107); Estimated GFR 94; Glucose 97 mg/dL (83-110); Magnesium 1.8 mg/dL (1.6-2.6); Potassium 4.1 mmol/L (3.5-5.1); Sodium 140 mmol/L (136-145)
[2022-07-29] MEDS: Gabapentin 300 MG CAP PO SCH ×2 (08:29→20:25)
[2022-07-29] MEDS: metroNIDAZOLE 250 MG TAB PO SCH ×3 (08:29→20:26)
[2022-07-29] MEDS: Aspirin Chewable 81 MG TAB PO SCH (08:29)
[2022-07-29] MEDS: DULoxetine 60 MG CAP PO SCH (08:29)
[2022-07-29] MEDS: Senokot S 8.6-50 MG TAB PO SCH ×2 (08:30→20:26)
[2022-07-29] MEDS: Polyethylene Glycol 3350 17 GM Packet PO SCH (08:30)
[2022-07-29] MEDS: HYDROcodone/Acetaminophen 5/325 mg Tablet PO PRN (10:17)
[2022-07-29] MEDS ORDERED: Ciprofloxacin 500 MG TAB PO SCH (20:00)
[2022-07-29] MEDS: Atorvastatin Calcium 40 MG TAB PO SCH (20:24)
[2022-07-30] MEDS: HYDROcodone/Acetaminophen 5/325 mg Tablet PO PRN (05:35)
[2022-07-30] MEDS: Baclofen 10 MG TAB PO SCH ×2 (05:40→14:51)
[2022-07-30] MEDS: Senokot S 8.6-50 MG TAB PO SCH (09:32)
[2022-07-30] MEDS: Aspirin Chewable 81 MG TAB PO SCH (09:32)
[2022-07-30] MEDS: Gabapentin 300 MG CAP PO SCH (09:32)
[2022-07-30] MEDS: DULoxetine 60 MG CAP PO SCH (09:32)
[2022-07-30] MEDS: metroNIDAZOLE 250 MG TAB PO SCH ×2 (09:34→14:51)
[2022-07-30] MEDS: Polyethylene Glycol 3350 17 GM Packet PO SCH (09:38)
[2022-07-30] MEDS ORDERED: Saccharomyces boulardii 250 MG CAP PO SCH (14:00)
[2022-07-30] MEDS ORDERED: Polyethylene Glycol 3350 17 GM Packet PO SCH (21:00)
[2022-07-30] MEDS ORDERED: Cephalexin 250 MG CAP PO SCH (21:00)
[2022-07-30] MEDS ORDERED: Bisacodyl 10 MG SUPP PR SCH (21:00)
[2022-07-30 21:27] VITALS: BP 135/89; TEMP 97.4
== END 2022-07-30 21:15 | DRG 871 ==
LOC: SUATTDRO 12:46 → ERS 12:46 → 2NO 15:07 → OBSVTOIN 15:08 → T4-A 07-23 15:22
PROVIDERS: ADMIT Family Medicine; ATTEND Internal Medicine
DX: A41.9 Sepsis, unspecified organism (principal); G93.41 Metabolic encephalopathy; M86.172 Other acute osteomyelitis, left ankle and foot; I48.20 Chronic atrial fibrillation, unspecified; I70.262 Atherosclerosis of native arteries of extremities with gangrene, left leg; L03.116 Cellulitis of left lower limb; I50.22 Chronic systolic (congestive) heart failure; I69.354 Hemiplegia and hemiparesis following cerebral infarction affecting left non-dominant side; Z51.5 Encounter for palliative care; R65.20 Severe sepsis without septic shock; E78.00 Pure hypercholesterolemia, unspecified; Z20.822 Contact with and (suspected) exposure to COVID-19; I25.10 Atherosclerotic heart disease of native coronary artery without angina pectoris; F03.90 Unspecified dementia, unspecified severity, without behavioral disturbance, psychotic disturbance, mood disturbance, and anxiety; I11.0 Hypertensive heart disease with heart failure; Z95.1 Presence of aortocoronary bypass graft; Z95.0 Presence of cardiac pacemaker; Z79.899 Other long term (current) drug therapy; Z79.01 Long term (current) use of anticoagulants; Z79.82 Long term (current) use of aspirin
CPT/HCPCS: 36415; 70450; 71250; 80048; 80053; 80076; 80202; 82805; 83036; 83605; 83735; 84484; 85025; 85652; 86140; 87040; 87070; 87077; 87149; 87186; 87205; 93005; 93010; 93306; 96365; 97139; J0692; J1650; J3370; J3370-JW; J3490; J7050; U0003; U0005

== ENCOUNTER 2023-01-02 18:00 | Outpatient (CLI) | payer MEDICARE, MEDICAID | END 2023-01-02 18:01 | disposition home or self-care (01) | LOC: SLEEPLAB 18:00 | PROVIDERS: ATTEND Family Medicine | DX: G47.33 Obstructive sleep apnea (adult) (pediatric) (principal); G47.31 Primary central sleep apnea; G47.10 Hypersomnia, unspecified; G47.9 Sleep disorder, unspecified; I50.22 Chronic systolic (congestive) heart failure; I63.9 Cerebral infarction, unspecified; R53.83 Other fatigue; I51.89 Other ill-defined heart diseases | CPT/HCPCS: 95800 ==

== ENCOUNTER 2023-03-01 10:27 | Outpatient (CLI) | payer MEDICARE, MEDICAID | END 2023-03-01 10:28 | disposition home or self-care (01) | LOC: RAD 10:27 | PROVIDERS: ATTEND Internal Medicine Critical Care Medicine | DX: R06.00 Dyspnea, unspecified (principal); I51.7 Cardiomegaly | CPT/HCPCS: 71046 ==

== ENCOUNTER 2024-02-21 13:02 | Emergency (ER) | payer MEDICARE, MEDICAID ==
[2024-02-21 14:03] LABS: #Basophils 0.06 10x3/uL (0.0-0.2); %Basophils 0.8 % (0.0-1.0); %Eosinophils 4.8 % (0.0-10.0); %Lymphocytes 14.9 % (21.0-51.0); %Monocytes 8.3 % (0.0-10.0); %Neutrophils 70.8 % (42.0-75.0); Hemoglobin 14.4 g/dL (14.0-18.0); Mean Corpuscular Hemoglobin 30.4 pg (27.0-31.0); Mean Corpuscular Volume 94.9 fL (78.0-98.0); Platelet Count 200 10x3/uL (130-400); RBC Distribution Width 13.8 % (11.5-14.5); Red Blood Cell (RBC) Count 4.74 mill/uL (4.70-6.10)
[2024-02-21 14:22] LABS: ALT (SGPT) 14 U/L (8-55); AST (SGOT) 19 U/L (5-34); Albumin 3.7 g/dL (3.4-4.8); Alkaline Phosphatase 119 U/L (40-110); Anion Gap 11 mmol/L (10-20); BUN (Urea Nitrogen) 25 mg/dL (8.4-25.7); Bilirubin, Total 0.8 mg/dL (0.2-1.2); CRP,High Sensitivity (Inhouse) 1.47 mg/dL (< or = 0.5); Calc. Creatinine Clearance 0 mL/min (70-130); Calcium 9.2 mg/dL (7.8-10.44); Carbon Dioxide 26 mmol/L (23-31); Chloride 106 mmol/L (98-107); Estimated GFR 82; Globulin 4.2 g/dL (2.4-3.5); Glucose 168 mg/dL (83-110); Potassium 4.2 mmol/L (3.5-5.1); Protein, Total 7.9 g/dL (5.8-8.1); Sodium 139 mmol/L (136-145)
[2024-02-21] MEDS ORDERED: Dextrose 5% in Water 1,000 ML IV PRN (16:36)
[2024-02-21] MEDS ORDERED: Glucagon 1 MG/ML KIT IM PRN (16:36)
[2024-02-21] MEDS ORDERED: Dextrose 50% Abboject 50 ML SYRINGE SLOW IVP PRN (16:36)
[2024-02-21] MEDS ORDERED: Calcium Carbonate 500 MG ChewTAB PO PRN (16:37)
[2024-02-21] MEDS ORDERED: Acetaminophen 325 MG TAB PO PRN (16:37)
[2024-02-21] MEDS ORDERED: Ondansetron PF 4 MG/2 ML Vial IVP PRN (16:37)
[2024-02-21] MEDS ORDERED: Insulin Lispro 100 UNIT/ML 10 ML VIAL SC PRN (16:37)
[2024-02-21] MEDS ORDERED: Ondansetron ODT 4 MG TAB PO PRN (16:37)
[2024-02-21] MEDS ORDERED: Ibuprofen 200 MG TAB PO SCH (21:00)
== END 2024-02-21 17:42 | disposition short-term general hospital (02) ==
LOC: ERS 13:02
DX: S41.002A Unspecified open wound of left shoulder, initial encounter (principal); I48.91 Unspecified atrial fibrillation; X58.XXXA Exposure to other specified factors, initial encounter; E78.00 Pure hypercholesterolemia, unspecified; Z86.73 Personal history of transient ischemic attack (TIA), and cerebral infarction without residual deficits
CPT/HCPCS: 36415; 80053; 83605; 85025; 86141; 99283